=== PATIENT | male | born 1940 | race Caucasian/White ===

== ENCOUNTER 2017-06-12 05:42 | Day surgery (SDC) | payer MEDICARE, SELFPAY ==
--- NOTE | 2017-06-08 11:38 | EKG12_ITS ---
Test Reason : PRE-OP Blood Pressure : / mmHG Vent. Rate : 102 BPM Atrial Rate : 187 BPM P-R Int : 000 ms QRS Dur : 100 ms QT Int : 350 ms P-R-T Axes : 000 079 090 degrees QTc Int : 456 ms Atrial fibrillation with rapid ventricular response with premature ventricular or aberrantly conducte d complexes Abnormal ECG Confirmed by SWAPNIL TORRES ([id number]), book editor VIOLET GOODWIN ([id number]) on 06/12/2017 1:23:10 PM Referred By: Daquan Sanford Confirmed By:SWAPNIL TORRES
[2017-06-08 12:32] LABS: Hematocrit 45.6 % (40-54); Hemoglobin 14.8 g/dl (13.0-16.5); Mean Corp Hgb Conc 32.5 g/gl (32-36); Mean Corpuscular Hgb 30.1 pg (27.0-32.0); Mean Corpuscular Volume 92.7 fL (80-94); Mean Platelet Vol. 10.5 fl (6.2-12.0); Platelet Count 150 K/mm3 (150-450); RBC Distribution Width CV 15.6 % (11.6-14.6); RBC Distribution Width SD 52.9 fl (35.1-43.9); Red Blood Count 4.92 M/mm3 (4.6-6.2); White Blood Count 4.9 K/mm3 (4.4-11.0)
[2017-06-08 12:44] LABS: Scan Indicated on CBC? Y/N NO
[2017-06-08 13:00] LABS: Anion Gap 6 (5-15); BUN 43 mg/dL (7-18); BUN/Creat Ratio 15.4 RATIO (10-20); Chloride 96 mmol/L (98-107); EST Glomerular Filtration Rate 24 mL/min (>60); Est Glom Filt Rate - Afr Amer 29 mL/min (>60); Glucose 254 mg/dL (74-106); Potassium 4.5 mmol/L (3.5-5.1); Sodium Level 131 mmol/L (136-145)
[2017-06-08 13:11] LABS: Hemoglobin A1c 8.1 % (4.2-6.3)
--- NOTE | 2017-06-12 | LES_PTH ---
PATIENT: DOMINIC RODRIGUEZ LOC: [facility] [place][id number] AGE/SX: 76/M ROOM: RE06/12/[address]: Dr. Hugh Sanford MD : 1940 BED: DIS: 06/12/2017 SPEC #: [id number] RECD: 06/12/17 07:58 STATUS: HANNA DEMETRIS #: [id number] CARLOS: 06/12/17 00:[address]: Hugh Sanford DEPT: SURGICAL PATHOLOGY RECD BY: Itzel Graves ENTERED: 06/12/17 10:01 SP TYPE: Lesion OTHR DR: Dr. Timi Noel MD Tissues: A - Skin of external ear, NOS B - Skin of external ear, NOS C - Skin of external ear, NOS D - Skin of external ear, NOS E - Skin of external ear, NOS F - Skin of external ear, NOS Procedures: Frozen Section (charge) Frozen Section Add'l ([facility]) Surgery Specimen Level IV Frozen (no charge) HEADER OPERATION: Excision right ear lesion with reconstruction, frozen section PRE-OP DIAGNOSIS: Right ear lesion TISSUE SUBMITTED: A ? Right ear lesion ? stitch at 12 o?clock, for diagnosis and margins sent to lab for FS at 1256, B ? Deep margins sent to lab for FS at 0800, C ? 12-3 o?clock margin sent to lab for FS at 0840, D ? 3-6 o?clock margin sent to lab for FS at 0840, E ? 6-9 o?clock margin sent to lab for FS at 0840, F ? 9-12 o?clock margin sent to lab for FS at 0840 FROZEN SECTION DIAGNOSIS A. Right ear lesion, biopsy: Squamous cell carcinoma, 3, 9 and 12 o?clock margins and deep margins are positive for tumor. B. Right ear lesion, deep margin, biopsy: Negative for carcinoma. C. Right ear lesion, 12 to 3 o?clock margin, biopsy: Negative for carcinoma. D. Right ear lesion, 3 to 6 o?clock margin, biopsy: Negative for carcinoma. E. Right ear lesion, 6 to 9 o?clock margin, biopsy: Negative for carcinoma. F. Right ear lesion, 9 to 12 o?clock margin, biopsy: Negative for carcinoma. SJ:adam 06/12/17 MICROSCOPIC DIAGNOSIS A. 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 See comment. Deep margin also show the cartilage. B. Right ear lesion, deep margin, biopsy: Negative for carcinoma. C. Right ear lesion, 12 to 3 o?clock margin, biopsy: Negative for carcinoma. D. Right ear lesion, 3 to 6 o?clock margin, biopsy: Negative for carcinoma. Solar elastosis. E. Right ear lesion, 6 to 9 o?clock margin, biopsy: Negative for carcinoma. Solar elastosis. F. Right ear lesion, 9 to 12 o?clock margin, biopsy: Negative for carcinoma. SJ:rg 06/13/17 COMMENT A. 12 o?clock margin is positive for tumor only in the frozen section slide. The deep margin and 3 and 9 o?clock margins are positive for tumor. MICROSCOPIC DESCRIPTION Slides are reviewed. GROSS DESCRIPTION A - Received fresh for frozen section diagnosis labeled with the patient's name is a specimen designated right ear lesion, stitch at 12 o'clock. The specimen consists of a round piece of duggan-white skin with focal ulcerated area measuring 1.6 x 1.5 cm and 0.1 cm in thickness. The specimen is inked as follows: 12?o?clock ? black, 6 o?clock ? blue, 3 o?clock ? green, 9 o?clock ? yellow. The entire specimen is submitted for frozen section diagnosis in two cassettes. Cassette 2 contains the 3 and 9 o?clock (enfaced) margins. B - Received fresh for frozen section diagnosis labeled with the patient's name is a specimen designated deep margin.? The specimen consists of a piece of soft tissue measuring 0.2 x 0.1 x 0.1 cm. The entire specimen is submitted for frozen section diagnosis in one cassette. C - Received fresh for frozen section diagnosis labeled with the patient's name is a specimen designated 12-3 o?clock margin.? The specimen consists of a piece of duggan-white skin measuring 0.5?x?0.3 x 0.1 cm. The entire specimen is submitted for frozen section diagnosis in one cassette. D - Received fresh for frozen section diagnosis labeled with the patient's name is a specimen designated 3-6 o?clock margin.? The specimen consists of a piece of duggan-white skin measuring 0.2?x?0.2 x 0.1 cm. The entire specimen is submitted for frozen section diagnosis in one cassette. E - Received fresh for frozen section diagnosis labeled with the patient's name is a specimen designated 6-9 o?clock margin.? The specimen consists of a piece of duggan-white skin measuring 0.4?x?0.2 x 0.1 cm. The entire specimen is submitted for frozen section diagnosis in one cassette. F - Received fresh for frozen section diagnosis labeled with the patient's name is a specimen designated 9-12 o?clock margin.? The specimen consists of a piece of duggan-white skin measuring 0.8?x?0.1 x 0.1 cm. The entire specimen is submitted for frozen section diagnosis in one cassette. / SJ:rg 06/12/17 TC:0 CPT: 18463 x6, 99553 x6, [id number]
[2017-06-12 06:15] VITALS: BP 128/91; PULSE 81; RESP 16; TEMP 36.3; O2SAT 98; BMI 30.2
[2017-06-12 06:31] LABS: Anion Gap 9 (5-15); BUN 40 mg/dL (7-18); BUN/Creat Ratio 13.8 RATIO (10-20); Calcium,Total 8.1 mg/dL (8.5-10.1); Chloride 98 mmol/L (98-107); Creatinine, Serum 2.89 mg/dL (0.70-1.30); EST Glomerular Filtration Rate 23 mL/min (>60); Est Glom Filt Rate - Afr Amer 28 mL/min (>60); Glucose 204 mg/dL (74-106); Potassium 3.9 mmol/L (3.5-5.1); Sodium Level 135 mmol/L (136-145)
[2017-06-12 06:36] LABS: Bedside Glucose 188 mg/dL (70-110)
[2017-06-12 06:38] LABS: International Normalized Ratio 1.8; Prothrombin Time (Protime)PT. 20.4 SECONDS (11.7-14.9)
[2017-06-12] MEDS: Clindamycin 900 MG/50 ML BAG 75 MG IV (07:26)
--- NOTE | 2017-06-12 07:28 | PCM.DC ---
You will use the following diet at home:: No restrictions Discharge Activity: No Restrictions Call your doctor if your incision/area has: Increased Pain/ Swelling Additional Dressing/Incision Instructions:: keep right ear dry until bolster taken off in clinic in 1 week. neck site can be washed with soap and water starting morning. place ointment on neck incision twice daily Allergies/Adverse Reactions: Allergies No Known Allergies Allergy (Verified 06/05/17 13:10) Medications to take at Discharge Amitriptyline HCl [Elavil] 25 mg PO QHS 06/05/17 Cholecalciferol (Vitamin D3) [Vitamin D3] 4,000 unit PO DAILY 06/05/17 Febuxostat [Uloric] 40 mg PO DAILY 06/05/17 Furosemide [Lasix] 40 mg PO DAILY 06/05/17 Gabapentin [Neurontin] 300 mg PO BID 06/05/17 Gabapentin [Neurontin] 600 mg PO QHS 06/05/17 Insulin Detemir [Levemir ([facility])] 32 units SC QHS 06/05/17 Lenalidomide [Revlimid] 2.5 mg PO DAILY 06/05/17 Metoprolol Succinate [Toprol Xl] 25 mg PO DAILY 06/05/17 Pravastatin [Pravachol] 20 mg PO QHS 06/05/17 Warfarin [Coumadin ([facility])] 0.5 mg PO SUWE 06/05/17 Warfarin [Coumadin ([facility])] 1 mg PO MOTUTHFRSA 06/05/17 Acetaminophen/Codeine #3 [Tylenol#3] 1 tab PO Q6H PRN PRN 5 Days #15 tab 06/12/17 Cephalexin [Keflex] 500 mg PO BID #6 cap 06/12/17 The following prescriptions were given: Acetaminophen/Codeine #3 [Tylenol#3] 1 tab PO Q6H PRN PRN 5 Days #15 tab PRN Reason: Pain Cephalexin [Keflex] 500 mg PO BID #6 cap Primary Care Physician: Timi Noel [Primary Care Provider] - Please Follow Up With: Daquan Sanford MD When: 1 week
--- NOTE | 2017-06-12 07:30 | PCM.OPRPT ---
Problem List (1) Ear lesion Status: Chronic Report of Operation Date of Procedure: 06/12/17 Pre-Operative Diagnosis: right ear lesion Post-Operative Diagnosis: 1. 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 2. right ear defect 2.5 x 2.5 cm Surgery/Procedure Performed:: 1. excision right squamous cell carcinoma, right auricle. 2. full thickness skin graft, 2.5cm x 1.5 cm, right auricle Type of Anesthesia:: General Specimen's removed: right ear lesion Drains: none Description of Procedure: on the day of the procedure, after appropriate informed consent was obtained, the patient was brought to the operating room and placed in supine position on the operating table. he was placed under general endotracheal anesthesia by the anesthesiologist. the endotracheal tube was secured, the eyes were taped. the table was rotated 90 degrees. the right ear and right neck were injected with lidocaine/epinephrine; this area was prepped and draped in sterile fashion. the maria victoria cavum lesion, 1.5 cm, extended from the posterior tragus to the incisura and slightly toward the external auditory canal but not entering it. the lesion was excised with 5mm circumferential margins. the specimen was confirmed as squamous cell carcinoma; the superior margins returned positive. additional 3mm circumferential margins were taken and the perichondrium was completely removed. margins outside the new margins were sent as quadrants and all returned negative. the final defect was 2.5 x 2.5 cm in diameter. an elliptical incision was made in a right lower neck crease and a 2.5cm x 2cm full thickness skin graft was taken. the surrounding tissue was undermined with a anatoliy scizzor circumferentially 1cm. the incision was closed using a layered closure using 4-0 vicryl and 5-0 fast gut. the graft was pie-crusted. after hemostasis was achieved, the graft was laid into the defect. it was sutured into place using 4-0 chromic both to the lateral defect as well as through and through the ear. the medial portion of the defect - the lateral EAC was left to granulate. a bolster was placed on the graft for compression and sutured through and through with 2-0 prolene. the patient was awoken from anesthesia and transferred to the PACU in stable condition. - Complications none - Admit VTE Documentation VTE Present on Admission: No VTE Mechan Device Prophylaxis: SCD's VTE Pharm Prophylaxis ordered?: No Reason prophylaxis not ordered:: Treatment Not Indicated
[2017-06-12] MEDS: Mupirocin Ointment 22gm Tube 1 APPLIC (09:17)
[2017-06-12 09:41] VITALS: BP 128/91; BP 145/108; PULSE 91; RESP 18; TEMP 36.6; O2SAT 94
[2017-06-12 09:45] VITALS: BP 128/91; BP 161/135; PULSE 86; RESP 16
[2017-06-12 10:00] VITALS: BP 100/87; BP 128/91; PULSE 81; RESP 16; O2SAT 94
[2017-06-12 10:07] VITALS: BP 128/91; BP 141/98; PULSE 87; RESP 16; TEMP 36.7; O2SAT 96
[2017-06-12 10:11] LABS: Bedside Glucose 156 mg/dL (70-110)
[2017-06-12 11:22] VITALS: BP 128/91
== END 2017-06-12 11:24 | disposition home or self-care (01) ==
LOC: SDC 05:43 → AC 05:43
PROVIDERS: Family Provider Family Medicine; PCP Family Medicine; Visit Provider Otolaryngology
PROC: (CPT 11642; principal; 2017-06-12 07:20)
DX: C44.222 Squamous cell carcinoma of skin of right ear and external auricular canal (principal); E11.9 Type 2 diabetes mellitus without complications; C90.00 Multiple myeloma not having achieved remission; N28.89 Other specified disorders of kidney and ureter; Z79.4 Long term (current) use of insulin; Z79.01 Long term (current) use of anticoagulants; Z79.899 Other long term (current) drug therapy; I48.91 Unspecified atrial fibrillation; I50.9 Heart failure, unspecified; I11.0 Hypertensive heart disease with heart failure; Z87.891 Personal history of nicotine dependence; Z86.73 Personal history of transient ischemic attack (TIA), and cerebral infarction without residual deficits
CPT/HCPCS: 11642; 15260; 36415; 80048; 82962; 83036; 85027; 85610; 88305; 88331; 88332; 93005; J7120; J2405

== ENCOUNTER → 2017-07-16 16:38 | Outpatient (CLI) | payer MEDICARE, SELFPAY | PROVIDERS: Family Provider Family Medicine; PCP Family Medicine; Visit Provider Otolaryngology | DX: H92.10 Otorrhea, unspecified ear (principal) | CPT/HCPCS: 87070; 87075; 87077; 87186; 87205 ==

== ENCOUNTER → 2017-12-25 13:22 | Outpatient (CLI) | payer MEDICARE, SELFPAY ==
--- NOTE | 2017-12-25 13:53 | RAD_ITS ---
STUDY: X-RAY CHEST REASON FOR EXAM: Male, 77 years old. Congestive heart failure TECHNIQUE: PA and lateral chest COMPARISON: None. FINDINGS: Right pectoral AICD device with 2 wire leads. Small to moderate layering right effusion with right lung base atelectasis. Minimal left effusion. Lungs otherwise clear. Normal cardiomediastinal silhouette, shashank and pleural margins. No acute osseous or upper abdominal process. RAD/Chest PA and Lateral IMPRESSION: Small to moderate right greater than left pleural effusions with mild right lung base atelectasis. No convincing features otherwise of interstitial edema. Effusion could be associated with mild cardiogenic pulmonary edema in the setting of chronic cardiac disease but other etiologies are not excluded. Electronically Signed: Jorge Schmitz, at 17:59 EDT Tel , Service support ,
[2017-12-25 14:35] LABS: Hematocrit 43.9 % (40-54); Hemoglobin 14.1 g/dl (13.0-16.5); Mean Corp Hgb Conc 32.1 g/gl (32-36); Mean Corpuscular Hgb 29.3 pg (27.0-32.0); Mean Corpuscular Volume 91.1 fL (80-94); Mean Platelet Vol. 11.1 fl (6.2-12.0); Platelet Count 104 K/mm3 (150-450); RBC Distribution Width CV 18.7 % (11.6-14.6); RBC Distribution Width SD 61.3 fl (35.1-43.9); Red Blood Count 4.82 M/mm3 (4.6-6.2); White Blood Count 3.9 K/mm3 (4.4-11.0)
[2017-12-25 14:38] LABS: Scan Indicated on CBC? Y/N NO
[2017-12-25 14:43] LABS: International Normalized Ratio 1.7; Prothrombin Time (Protime)PT. 20.1 SECONDS (11.7-14.9)
[2017-12-25 14:44] LABS: Partial Thromboplast Time 32.5 Seconds (24.1-36.2)
[2017-12-25 15:03] LABS: Anion Gap 12 (5-15); BUN 36 mg/dL (7-18); BUN/Creat Ratio 15.2 RATIO (10-20); Calcium,Total 8.5 mg/dL (8.5-10.1); Chloride 97 mmol/L (98-107); Creatinine, Serum 2.37 mg/dL (0.70-1.30); EST Glomerular Filtration Rate 29 mL/min (>60); Est Glom Filt Rate - Afr Amer 35 mL/min (>60); Glucose 82 mg/dL (74-106); Sodium Level 132 mmol/L (136-145)
== END ==
PROVIDERS: Family Provider Family Medicine; PCP Family Medicine; Visit Provider Internal Medicine Cardiovascular Disease
DX: I49.3 Ventricular premature depolarization (principal); I48.0 Paroxysmal atrial fibrillation; I42.8 Other cardiomyopathies; I50.22 Chronic systolic (congestive) heart failure; R06.02 Shortness of breath
CPT/HCPCS: 36415; 71046; 80048; 85027; 85610; 85730

== ENCOUNTER → 2017-12-27 11:01 | Outpatient (CLI) | payer MEDICARE, SELFPAY ==
--- NOTE | 2017-12-27 11:02 | ECHOD_ITS ---
Reason For Study: CHF Procedure This was a 2D Doppler, Color Flow transthoracic echocardiogram. Exam performed in department. Left Ventricle Apical false tendon noted. Moderately dilated left ventricle. The estimated ejection fraction is 15 %. Septal motion consistent with IVCD. There is severe global hypokinesis of the left ventricle. Right Ventricle Moderately dilated right ventricle. ICD or pacer leads identified within the right ventricle. Moderate global right ventricular systolic dysfunction. Atria The left atrium is severely enlarged. The right atrium is severely enlarged. Normal atrial septum. Positive bubble study. Mitral Valve Mild diffuse mitral valve thickening. Mild mitral annular calcification extending into the posterior leaflet. Mild (1+) mitral valve insufficiency. Tricuspid Valve Normal tricuspid valve. Mild (1+) tricuspid valve insufficiency. Right ventricular systolic pressure estimated to be 49 mmHg. Moderate pulmonary hypertension. Aortic Valve Trisinus/trileaflet aortic valve. Moderate diffuse aortic valve thickening. Moderate diffuse aortic valve calcification. Severe restriction of the aortic valve. Moderate aortic stenosis. Calculated aortic valve area (continuity equation) is 1.0 cm2. Trivial aortic valve insufficiency. Pulmonic Valve Normal pulmonic valve. Great Vessels Normal aortic root. Mild atherosclerosis of the aortic arch. The inferior vena cava is dilated. Inferior vena cava collapse with sniff. Pericardium/Pleural No pericardial effusion. Medication 22 gauge I.V. with prn adaptor inserted into right arm. Performed a rapid injection of agitated mix of 9 cc saline and 1cc air to assess for atrial septal defect. MMode/2D Measurements & Calculations LVIDd: 5.5 cm IVSd: 0.94 cm LVOT diam: 2.0 cm LVIDs: 5.1 cm LVPWd: 0.90 cm LVOT area: 3.2 cm2 RVDd: 3.9 cm FS: 6.1 % Ao root diam: 3.4 cm LAV(MOD-bp): 106.6 ml LVAd ap4: 39.4 cm2 LA dimension: 4.7 cm LAV(MOD-bp) Indexed: 50.0 ml/m2 EDV(MOD-sp4): 146.9 ml LAV(MOD-sp2): 92.0 ml EDV(sp4-el): 150.3 ml LAV(MOD-sp4): 113.3 ml LVAs ap4: 35.4 cm2 ESV(MOD-sp4): 120.8 ml ESV(sp4-el): 124.2 ml EF(MOD-sp4): 17.8 % EF(sp4-el): 17.4 % SV(MOD-sp4): 26.2 ml SV(sp4-el): 26.1 ml LA A4 area: 31.2 cm2 RA A4 area: 36.3 cm2 Doppler Measurements & Calculations MV E max raeann: 94.7 cm/sec Ao V2 max: 175.3 cm/sec LV V1 max: 56.0 cm/sec Ao max P.6 mmHg LV V1 max P.3 mmHg Ao V2 mean: 135.7 cm/sec LV V1 mean P.73 mmHg Ao mean P.2 mmHg LV V1 mean: 40.1 cm/sec Ao V2 VTI: 28.8 cm LV V1 VTI: 10.0 cm MARIA INES(I,D): 1.1 cm2 MARIA INES(V,D): 1.0 cm2 SV(LVOT): 32.3 ml PA V2 max: 74.5 cm/sec TR max raeann: 265.8 cm/sec TR max P.5 mmHg Interpretation Summary Moderately dilated left ventricle. The estimated ejection fraction is 15 %. There is severe global hypokinesis of the left ventricle. Moderately dilated right ventricle. The left atrium is severely enlarged. The right atrium is severely enlarged. Positive bubble study. Mild (1+) tricuspid valve insufficiency. Right ventricular systolic pressure estimated to be 49 mmHg. Moderate pulmonary hypertension. Severe restriction of the aortic valve. Moderate to severe aortic stenosis. Pt appears to be in atrial fibrillation. Compared to echo report dated 06/11/2012, LV function has gone from 55% to 15 %, RVSP has decreased from 63 to 49 mm Hg, and aortic valve appears to be moderate to severely restricted. Ordering Physician: Antione Billy Referring Physician: REGINA BASHIR Performed By: Nafisa Ellis RDCS
== END ==
PROVIDERS: Family Provider Family Medicine; PCP Family Medicine; Visit Provider Internal Medicine Cardiovascular Disease
DX: I49.3 Ventricular premature depolarization (principal)
CPT/HCPCS: 93306; A4216

== ENCOUNTER → 2017-12-31 15:54 | Outpatient (CLI) | payer MEDICARE, SELFPAY ==
[2017-12-27 08:57] VITALS: BMI 31.2
[2017-12-28 07:21] LABS: Prothrombin Time Fingerstick 25.2 SEC (11.9-14.4)
== END ==
PROVIDERS: Family Provider Family Medicine; PCP Family Medicine; Visit Provider Internal Medicine Cardiovascular Disease
DX: Z01.812 Encounter for preprocedural laboratory examination (principal)
CPT/HCPCS: 36416; 85610

== ENCOUNTER 2018-01-01 11:12 | Inpatient (IN) | payer MEDICARE, SELFPAY ==
[2018-01-01] VITALS (11 sets, daily range): BP systolic 97–143; BP diastolic 69–98; PULSE 76–104; RESP 16–22; TEMP 36.4–36.9; O2SAT 92–98; BMI 31.5; BMI 30.6
--- NOTE | 2018-01-01 11:27 | CT_ITS ---
STUDY: CT BRAIN WITHOUT CONTRAST REASON FOR EXAM: Male, 77 years old. History of trauma. The patient is on Coumadin. RADIATION DOSAGE (If Supplied By Facility): CTDIvol = ( 44.99 ) mGy, DLP = ( 846.73 ) mGycm TECHNIQUE: Transaxial CT imaging of the brain was performed without administration of intravenous contrast material. Individualized dose optimization techniques were used for this CT. COMPARISON: None. FINDINGS: Normal soft tissue structures. Normal calvarium. There is moderate cerebral atrophy with widening of the extra-axial spaces and ventricular dilatation. There are areas of decreased attenuation within the white matter tracts of the supratentorial brain, consistent with microvascular disease changes. Focal encephalomalacia in the posterior aspect of the left temporal lobe most likely secondary to prior ischemic changes. Normal basal ganglia and thalami. Normal brainstem. Normal cerebellum. There is no intracranial hemorrhage. There are no findings of an acute ischemic infarction. Atherosclerotic calcification of the vertebral arteries and cavernous portions of the internal carotid arteries bilaterally. Opacification of the right maxillary sinus as well as the left sphenoid sinus. CT/Brain/Head without Contrast IMPRESSION: Chronic involutional changes of the brain. Opacification of the right maxillary sinus and left sphenoid sinus. Electronically Signed: Ciaran Pollard MD at 12:18 EDT Tel [phone], Service support ,
--- NOTE | 2018-01-01 11:27 | RAD_ITS ---
STUDY: X-RAY CHEST REASON FOR EXAM: Male, 77 years old. Syncopal episode TECHNIQUE: Single AP portable view of the chest. COMPARISON: 12/25/2017 FINDINGS: Lungs are hypoinflated. Diffuse interstitial edema. Stable right chest wall pacing device. Stable cardiomegaly. There is mild cardiac enlargement. Normal mediastinum and shashank. Normal visualized pulmonary arteries. Normal visualized aortic arch and descending thoracic aorta. Normal visualized thoracic spine. Normal visualized ribs, clavicles, and shoulders. There is no demonstrated abnormality of the visualized soft tissue structures of the upper abdomen. RAD/Chest 1 View (Portable) IMPRESSION: Findings suggestive of CHF Electronically Signed: Ludwig Oneil DO at 11:57 EDT Tel , Service support ,
--- NOTE | 2018-01-01 11:27 | EKG12_ITS ---
Test Reason : SYNCOPE Blood Pressure : / mmHG Vent. Rate : 098 BPM Atrial Rate : 214 BPM P-R Int : 000 ms QRS Dur : 102 ms QT Int : 380 ms P-R-T Axes : 000 085 164 degrees QTc Int : 485 ms Atrial fibrillation Low voltage QRS (LIMB LEADS) Poor R wave progression T wave abnormality: consider lateral ischemia Cannot rule out Inferior infarct , age undetermined Abnormal ECG Confirmed by NATA SCHMIDT, DAMIÁN ([id number]), photographic editor VIOLET GOODWIN ([id number]) on 01/02/2018 2:09:55 PM Referred By: SHIRA Confirmed By:DAMIÁN PEACE MD
--- NOTE | 2018-01-01 11:28 | CT_ITS ---
STUDY: CT CERVICAL SPINE WITHOUT CONTRAST REASON FOR EXAM: Male, 77 years old. History of trauma. The patient is on Coumadin. RADIATION DOSAGE (If Supplied By Facility): CTDIvol = ( 27.28 ) mGy, DLP = ( 717.21 ) mGycm TECHNIQUE: High resolution transaxial imaging was performed without contrast material. Sagittal and coronal images were reconstructed. Individualized dose optimization techniques were used for this CT. COMPARISON: None FINDINGS: Normal craniovertebral junction. There are degenerative changes of the anterior atlantoaxial articulation. Normal odontoid process. Normal cervical lordosis. Normal vertebral bodies and posterior osseous elements. Opacification of the left sphenoid sinus. C2-3: Mild degree of disc space narrowing. Facet joint osteoarthritis worse on the right side. Uncovertebral arthrosis. Mild degree of the right neural foraminal stenosis. C3-4: Facet joint osteoarthritis and hypertrophy worse on the left side. Uncovertebral arthrosis. Mild bilateral neural foraminal stenosis worse on the left side. C4-5: Anterior spondylosis. Facet joint osteoarthritis and hypertrophy worse on the right side. Uncovertebral arthrosis. Mild degree of left neural foraminal stenosis. C5-6: Marked degree of disc space narrowing and disc degeneration. Left posterior paracentral spondylosis causing moderate to marked degree of compression of the left side of the spinal cord. Bilateral neural foraminal stenosis worse on the left side. C6-7: Marked degree of disc space narrowing and spondylosis with uncovertebral arthrosis. Mild degree of bilateral neural foraminal stenosis. CT/Spine Cervical without Contras IMPRESSION: Multilevel degenerative changes, as described above. Electronically Signed: Ciaran Pollard MD at 12:24 EDT Tel [phone], Service support ,
--- NOTE | 2018-01-01 11:44 | ED.DCSUM_ITS ---
- ER Visit Summary Date of Service: 01/01/18 Chief Complaint: Change in mental status status post syncopal episode History of Present Illness: The patient is a 77 M who apparently was sitting in a chair in his room and fell out of the chair at 0400. Uncertain if he had a syncopal episode or not. He has not been normal since. He is on Coumadin for chronic A. fib. He acknowledged denies head pain. His speech is garbled. History is limited to what is able to tell me. Physical Examination: Blood pressure 112/90, heart rate 101, respiratory rate 22. He is not hypoxic nor is he febrile. He has multiple recent as well as old bruises to his head. There is no clinical findings basal skull fracture. Trach is midline. He was placed in a c-collar's since he is not alert oriented and cannot be cleared per Nexus criteria. Heart is irregularly regular. Lungs revealed diminished breath sounds bilaterally. Abdomen is soft nontender. There is pitting edema both lower extremities. He moves all extremities. DTRs symmetric with no clonus or Babinski sign. Test Results: CT of the head reveals no evidence of intracranial pathology or fracture. There is evidence of right maxillary sinusitis and left sphenoid sinusitis. CT of the neck reveals degenerative changes. Portable chest x-ray reveals cardiomegaly and CHF. White count is 3.9 thousand with no shift. BUN and creatinine are 46 and 2.81. Creatinine on December 25 was 2.37. INR subtherapeutic at 1.5. Troponins elevated at 0.376. Emergency Department Course and Treatment: With history of head trauma on Coumadin and complaint of headache emergent CAT scan head was obtained to rule out intracranial bleed. Since C-spine cannot be ruled out by Nexus criteria CT of the neck was obtained. EKG, appropriate blood work was obtained to evaluate for metabolic versus infectious versus cardiac etiology. Treatment Plan: Change in mental status this may represent a stroke this could be secondary to infectious process with the evidence of sphenoid and maxillary sinusitis. Will treat with Rocephin. He will need further workup. Since he is a fall risk with 3 falls in the last 1-2 weeks consider termination of anticoagulation therapy. Disposition: Admit PCU Impression: 1. Fall unknown etiology 2. Exacerbation of CHF 3. Chronic atrial fibrillation 4. Elevated troponin on certain etiology 5. Right maxillary and left sphenoid sinusitis 6. Acute on chronic end-stage renal disease 7. Neutropenia 8. Change in mental status 9. Closed head injury This note was generated with [employer] dictation software. It may contain incorrect words, spelling, and punctuation that were not noted in review of the chart prior to signing ED Disposition - Plan for ED Patient: Chief Complaint: Syncope Referrals: Timi Noel [Primary Care Provider] -
[2018-01-01 11:47] LABS: Absolute Lymphocyte Count 0.66 X10^3/ul (0.83-4.51); Absolute Neutrophil Count 2.6 X10^3/uL (2.0-7.7); Basophil# 0.05 X10^3/uL; Basophil% 1.3 % (0-1); Eosinophil# 0.15 X10^3/uL; Eosinophils% 3.8 % (0-5); Hematocrit 42.1 % (40-54); Hemoglobin 13.4 g/dl (13.0-16.5); Lymphocyte # 0.66 X10^3/ul (4.0); Lymphocyte % 16.8 % (19-41); Mean Corp Hgb Conc 31.8 g/gl (32-36); Mean Corpuscular Hgb 28.3 pg (27.0-32.0); Mean Corpuscular Volume 88.8 fL (80-94); Mean Platelet Vol. 10.2 fl (6.2-12.0); Monocyte# 0.49 X10^3/uL; Monocyte% 12.5 % (0-10); Neutrophil # 2.56 X10^3/uL (2.7-7.7); Neutrophil % 65.3 % (47-70); POSITIVE COUNT NO; POSITIVE DIFFERENTIAL NO; POSITIVE MORPHOLOGY NO; Platelet Count 105 K/mm3 (150-450); RBC Distribution Width CV 18.4 % (11.6-14.6); Red Blood Count 4.74 M/mm3 (4.6-6.2); White Blood Count 3.9 K/mm3 (4.4-11.0)
--- NOTE | 2018-01-01 11:47 | NURSING ---
BLUE TOP SHORT AND NEEDS REDRAWN
[2018-01-01 11:54] LABS: Anion Gap 11 (5-15); BUN 46 mg/dL (7-18); BUN/Creat Ratio 16.4 RATIO (10-20); Calcium,Total 8.8 mg/dL (8.5-10.1); Chloride 94 mmol/L (98-107); Creatinine, Serum 2.81 mg/dL (0.70-1.30); EST Glomerular Filtration Rate 23 mL/min (>60); Est Glom Filt Rate - Afr Amer 28 mL/min (>60); Estimated Creatinine Clearance 23.09 ml/min; Glucose 80 mg/dL (74-106); Potassium 4.5 mmol/L (3.5-5.1); Sodium Level 134 mmol/L (136-145)
[2018-01-01 12:24] LABS: International Normalized Ratio 1.5; Prothrombin Time (Protime)PT. 18.2 SECONDS (11.7-14.9)
[2018-01-01] MEDS: Diphth,Pertuss(Acell),Tet Vac 0.5 ML Vial IM (12:52)
--- NOTE | 2018-01-01 13:17 | CASEMGMT ---
Social Work Note Face to face with the pt and spouse to complete initial assessment. Introduced self and role at [facility]. The pt is painful and completes assessment with SW. According to Marcy, , the pt and she live in a one-story home with 4 MANUEL and 2 handrails. The pt typically does not have access issues, and does not use DME. Marcy states that he has been more weak the last two weeks. Per Marcy the pt is independent with ADL's. Confirms that the pt's PCP is Dr. Noel, and specialists are Dr. Sears and Dr. Billy. Preferred pharmacy is [facility] in [place]. Pt does have advanced directives. None on file. Request that pt's bring them in. Pt does not have a hx of SNF or HHC services, and is unsure if they will need either at discharge. Inform that PT/OT will likely be ordered and an RN CM will assist with navigation of discharge needs/services. Michelle Ballard, SA[employer]AGE S[employer]ER, [employer]UM PLATER
[2018-01-01] MEDS: Ceftriaxone 1 GM/50 ML BAG IV (13:24)
[2018-01-01] MEDS: Furosemide 40 MG/4 ML Vial IV ×2 (13:24→17:24)
--- NOTE | 2018-01-01 13:29 | NURSING ---
122 ALTERED MENTAL STATUS, ACUTE CHF PAINTSIL
[2018-01-01 14:44] LABS: Thyroid Stim Hormone (TSH) 2.81 uIU/mL (0.358-3.74)
[2018-01-01 14:54] LABS: BNP,B-Type NATRIURETIC PEPTIDE 2847.1 pg/mL (0-100)
--- NOTE | 2018-01-01 15:59 | PCM.HP.STD ---
Problem List (1) Acute on chronic systolic CHF (congestive heart failure) Status: Acute (2) Type 2 diabetes mellitus Status: Chronic Qualifiers: Diabetes mellitus mcfp insulin use: with mcfp use Diabetes mellitus complication status: with unspecified complications Qualified Code(s): E11.8 - Type 2 diabetes mellitus with unspecified complications; Z79.4 - snf (current) use of insulin (3) Multiple myeloma Status: Chronic Qualifiers: Multiple myeloma remission status: unspecified Qualified Code(s): C90.00 - Multiple myeloma not having achieved remission (4) Hyperlipidemia Status: Chronic Qualifiers: Hyperlipidemia type: unspecified Qualified Code(s): E78.5 - Hyperlipidemia, unspecified (5) HTN (hypertension) Status: Chronic Qualifiers: Hypertension type: essential hypertension Qualified Code(s): I10 - Essential (primary) hypertension History of Present Illness Date of Admission: 01/01/18 Chief Complaint: Shortness of breath, fall The patient is a 77 year old M with PMHx of multiple myeloma, on oral chemotherapy, hypertension, chronic atrial fibrillation, on coumadin, cognitive impairment who has recently established with Dr. Billy and had an ECHO done which showed EF 15%, severe global hypokinesis. He has severe aortic stenosis also and was due to get a OSWALDO, left and right heart cath on . History is per as patient appears confused. He has been sleeping in a recliner for weeks now and sleeps with his head frequently almost touching his knees. His heard a loud thump on the morning of the admission, came to find him lying on the floor. He did not look confused, it was unclear if he passed out. He denied chest pain, dizziness or palpitations. He had some bruises to his head. He was seen in the ED and CT brain was negative for any intracranial abnormalities. His blood work and CHF was however suggestive of acute CHF. Past Medical History Past Medical History (Chronic Problems): Chronic Problems (Last Updated 12/27/17 @ 13:37 by Ebony Cross) AICD (automatic cardioverter/defibrillator) present (Chronic) Nonrheumatic aortic (valve) stenosis (Chronic) per echo 12/27/17 Premature ventricular contractions (Chronic) First degree AV block (Chronic) Nonischemic cardiomyopathy (Chronic) EF 20-25% per echo Apr 2017 History of cardioversion (Chronic 08/15/17) OSWALDO, DCCV and ICD implant for nonischemic CMP @ [facility] per Dr. Gifford History of nephrectomy (Chronic) Mentioned in EP procedure done @ [facility] 2018: verify with pt at appt. Cardiac defibrillator in situ (Chronic) with pacemaker, prophylactic for EF of 20-25%/sudden cardiac prevention: Dual Chamber, Medtronic Evera MRI XT DR model DDM B1D4, serial number [id number] per Dr. 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 Sears for oncology Chronic kidney disease, stage 4 (severe) (Chronic) Chronic systolic CHF (congestive heart failure), NYHA class 3 (Chronic) Ear lesion (Chronic) Type 2 diabetes mellitus (Chronic) Multiple myeloma (Chronic) History of atrial fibrillation (Chronic) Hyperlipidemia (Chronic) HTN (hypertension) (Chronic) Medical History: Medical History (Last Updated 12/27/17 @ 13:37 by Ebony Cross) Nonrheumatic aortic (valve) stenosis (Chronic) I35.0 per echo 12/27/17 Pleural effusion, right (Acute) J90 Premature ventricular contractions (Chronic) I49.3 First degree AV block (Chronic) I44.0 Nonischemic cardiomyopathy (Chronic) I42.8 EF 20-25% per echo Apr 2017 Cardiac defibrillator in situ (Chronic) Z95.810 with pacemaker, prophylactic for EF of 20-25%/sudden cardiac prevention: Dual Chamber, Medtronic Evera MRI XT DR model DDM B1D4, serial number [id number] per Dr. 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 Sears for oncology Chronic kidney disease, stage 4 (severe) (Chronic) N18.4 Inguinal hernia bilateral, non-recurrent (Acute) K40.20 Chronic systolic CHF (congestive heart failure), NYHA class 3 (Chronic) I50.22 Shortness of breath (Acute) R06.02 Gout (Acute) M10.9 Arthritis (Acute) M19.90 Fatigue (Acute) R53.83 Ear lesion (Chronic) H93.90 Type 2 diabetes mellitus (Chronic) E11.9 Multiple myeloma (Chronic) C90.00 History of atrial fibrillation (Chronic) Z86.79 Hyperlipidemia (Chronic) E78.5 HTN (hypertension) (Chronic) I10 Allergies No Known Allergies Allergy (Verified 01/01/18 11:30) Home Medications: Ambulatory Orders Medication Instructions Recorded Amitriptyline HCl [Elavil] 25 mg PO QHS 06/05/17 Cholecalciferol (Vitamin D3) 4,000 unit PO DAILY 06/05/17 [Vitamin D3] Gabapentin [Neurontin] 300 mg PO BID 06/05/17 Gabapentin [Neurontin] 600 mg PO QHS 06/05/17 Insulin Detemir [Levemir (BKC)] 30 units SC QHS 06/05/17 Lenalidomide [Revlimid] 2.5 mg PO DAILY 06/05/17 Metoprolol Succinate [Toprol Xl] 25 mg PO DAILY 06/05/17 Pravastatin [Pravachol] 20 mg PO QHS 06/05/17 Warfarin [Coumadin (PBKC)] 0.5 mg PO SUWE 06/05/17 Warfarin [Coumadin (PBKC)] 1 mg PO MOTUTHFRSA 06/05/17 furosemide 40 mg tablet 20 mg PO DAILY tab 12/05/17 aspirin 81 mg tablet,delayed 81 mg PO DAILY 12/25/17 release Clopidogrel Bisulfate [Clopidogrel] 75 mg PO DAILY 01/01/18 Enoxaparin Sodium [Lovenox] 80 mg SC Q12H 01/01/18 Surgical History: Surgical History (Last Reviewed 12/25/17 @ 11:42 by Ebony Cross) History of cardioversion (Chronic) Onset Date: 08/15/17 Z98.890 OSWALDO, DCCV and ICD implant for nonischemic CMP @ [facility] per Dr. Gifford History of nephrectomy (Chronic) Z90.5 Mentioned in EP procedure done @ [facility] 2018: verify with pt at appt. History of renal stent (Acute) Z98.890 Right side Hx of hemorrhoidectomy (Acute) Z98.890 Hx of basal cell carcinoma excision (Acute) Z98.890, Z85.828 inside right ear- 05/2017 Surgical History: - - s/p nephrectomy, hemorrhoidectomy, h/o renal stent, h/o cardioversion Psychiatric History: No pertinent psych hx Lives: Spouse/ Significant Other Smoking Status: Former smoker Tobacco Use: Cigarettes Alcohol: None Drugs: None - *Family History Maternal Family History: Family History (Last Reviewed 12/25/17 @ 11:42 by Ebony Cross) Sister Heart disease Diabetes Hypertension Mother CAD (coronary artery disease) Myocardial infarction Brother CAD (coronary artery disease) Myocardial infarction Father Aneurysm History Items: Heart Disease Sibling Family History: Family History (Last Reviewed 12/25/17 @ 11:42 by Ebony Cross) Sister Heart disease Diabetes Hypertension Mother CAD (coronary artery disease) Myocardial infarction Brother CAD (coronary artery disease) Myocardial infarction Father Aneurysm History Items: Heart Disease Paternal Family History: Family History (Last Reviewed 12/25/17 @ 11:42 by Ebony Cross) Sister Heart disease Diabetes Hypertension Mother CAD (coronary artery disease) Myocardial infarction Brother CAD (coronary artery disease) Myocardial infarction Father Aneurysm History Items: - - Aortic dissection Review of Systems Constitutional: Denies: Anorexia, Chills, Fever, Malaise, Weakness, Weight Change Eyes: Denies: Blurred vision, Cataracts, Conjunctivae Inflammation, Double vision, Pain, Redness, Vision Change HEENT: Denies: Difficulty Hearing, Difficulty Swallowing, Head Aches, Hearing Changes, Sinus Congestion, Sinus Drainage, Sore Throat Cardiovascular: Reports: Orthopnea, Paroxysmal Noc. Dyspnea, Syncope. Denies: Chest Pain, Claudication, Palpitations Respiratory: Reports: Shortness of breath at rest, Shortness of breath upon exertion. Denies: Cough, Sputum production Gastrointestinal: Denies: Abdominal Pain, Nausea, Vomiting Genitourinary: Denies: Dysuria Musculoskeletal: Denies: Joint Pain, Joint stiffness, Joint swelling, Joint Tenderness Skin: Denies: Rash, Wounds Neurological: Denies: Numbness, Tingling, Focal weakness Psychiatric: Denies: Anxiety, Depression, Homicidal Ideations, Suicidal Ideations Hematologic/ Lymphatic: Denies: Easy Bruising, Easy Bleeding VTE Information - Inpt Only VTE Present on Admission: No VTE Pharm Prophylaxis ordered?: Yes Patient Problems: Active and Suspected Problems (Last Updated 12/27/17 @ 13:37 by Ebony Cross) Acute on chronic systolic CHF (congestive heart failure) (Acute) Syncope (Acute) - Physical Exam General: Alert, Cooperative, Confused, - - in mild respiratory distress HEENT: Atraumatic, PERRLA, EOMI, Normocephalic, - - ecchymosis on forehead Oral: Moist Mucosa Neck: Supple, No JVD, Negative Carotid Bruits Lungs: Normal air movement, Diminished - at the lung bases Cardiovascular: Regular rate, Regular Rhythm, Normal S1, Normal S2, No murmurs Abdomen: Bowel Sounds Present, Soft, Non Tender, Non-Distended, No Hepato-splenomegaly Extremities: Edema - bilateral leg edema, with chronic venous stasis changes, pitting, +2, non-edema. Skin: No rashes, No breakdown Musculoskeletal: No Tenderness to Palpation of Joints or Extremities Neurological: Cranial nerves II-XII grossly intact, Neuro grossly intact Psych/Mental Status: Normal Affect, Appropriate Vital Signs Temp Pulse Resp BP Pulse Ox 98.4 F 104 H 18 143/94 H 92 01/01/18 14:05 01/01/18 14:18 01/01/18 14:05 01/01/18 14:08 01/01/18 15:15 Oxygen Delivery Method Room Air Weight: 96.7 kg Body Mass Index (BMI) 30.6 Laboratory Tests Past 24 Hrs 01/01/18 15:45 Troponin I Pending Assessment/Plan All Active Problems (Last Updated 12/27/17 @ 13:37 by Ebony Cross) Acute on chronic systolic CHF (congestive heart failure) (Acute) Syncope (Acute) Pleural effusion, right (Acute) Pre-operative cardiovascular examination (Acute) Inguinal hernia bilateral, non-recurrent (Acute) History of renal stent (Acute) Hx of hemorrhoidectomy (Acute) Hx of basal cell carcinoma excision (Acute) Shortness of breath (Acute) Gout (Acute) Arthritis (Acute) Fatigue (Acute) The patient is a 77 year old M with PMHx of multiple myeloma, on oral chemotherapy, hypertension, chronic atrial fibrillation, on coumadin, cognitive impairment who has recently established with Dr. Billy and had an ECHO done which showed EF 15%, severe global hypokinesis. 1. Acute on chronic CHF, EF 15%, s/p AICD, on oral lasix, admitting BNP >2800, CXR points to acute CHF, will admit, IV lasix 40mg BID, strict I & Os, daily wts 2. Fall, ? Syncope, unclear, fell whilst sleeping in chair, CT brain is negative, CT spine is negative, bruise on forehead from fall, will monitor, Tylenol prn for pain, topical Bengay for neck pain 3. Chronic Atrial fibrillation, rate controlled, on Lovenox bridging for procedure 4. Severe aortic stenosis, AV area on ECHO 1.0cm2, going for OSWALDO, possibly by Dr. Billy 5. Cardiomyopathy, non-ischemic for now, no reported h/o heart cath, going also for heart cath on 6. Multiple myeloma, on oral chemo 7. CKD stage 3, Cr at baseline, s/p nephrectomy, will monitor with use of Lasix 8. DVT PPx- pt is on Lovenox therapeutic dosing Code Visit Inpatient E&M: 78570 Init Hosp L3
--- NOTE | 2018-01-01 16:02 | HP.PCM_ITS ---
Problem List (1) Acute on chronic systolic CHF (congestive heart failure) Status: Acute (2) Type 2 diabetes mellitus Status: Chronic Qualifiers: Diabetes mellitus penitentiary insulin use: with penitentiary use Diabetes mellitus complication status: with unspecified complications Qualified Code(s) : E11.8 - Type 2 diabetes mellitus with unspecified complications; Z79.4 - oil heaterman (current) use of insulin (3) Multiple myeloma Status: Chronic Qualifiers: Multiple myeloma remission status: unspecified Qualified Code(s): C90.00 - Multiple myeloma not having achieved remission (4) Hyperlipidemia Status: Chronic Qualifiers: Hyperlipidemia type: unspecified Qualified Code(s): E78.5 - Hyperlipidemia , unspecified (5) HTN (hypertension) Status: Chronic Qualifiers: Hypertension type: essential hypertension Qualified Code(s): I10 - Essential (primary) hypertension History of Present Illness Date of Admission: 01/01/18 Chief Complaint: Shortness of breath, fall The patient is a 77 year old M with PMHx of multiple myeloma, on oral chemotherapy, hypertension, chronic atrial fibrillation, on coumadin, cognitive impairment who has recently established with Dr. Billy and had an ECHO done which showed EF 15%, severe global hypokinesis. He has severe aortic stenosis also and was due to get a OSWALDO, left and right heart cath on . History is per as patient appears confused. He has been sleeping in a recliner for weeks now and sleeps with his head frequently almost touching his knees. His heard a loud thump on the morning of the admission, came to find him lying on the floor. He did not look confused, it was unclear if he passed out. He denied chest pain, dizziness or palpitations. He had some bruises to his head. He was seen in the ED and CT brain was negative for any intracranial abnormalities. His blood work and CHF was however suggestive of acute CHF. Past Medical History Past Medical History (Chronic Problems): Chronic Problems (Last Updated 12/27/17 @ 13:37 by Ebony Cross) AICD (automatic cardioverter/defibrillator) present (Chronic) Nonrheumatic aortic (valve) stenosis (Chronic) per echo 12/27/17 Premature ventricular contractions (Chronic) First degree AV block (Chronic) Nonischemic cardiomyopathy (Chronic) EF 20-25% per echo Apr 2017 History of cardioversion (Chronic 08/15/17) OSWALDO, DCCV and ICD implant for nonischemic CMP @ [facility] per Dr. Gifford History of nephrectomy (Chronic) Mentioned in EP procedure done @ [facility] 2018: verify with pt at appt. Cardiac defibrillator in situ (Chronic) with pacemaker, prophylactic for EF of 20-25%/sudden cardiac prevention: Dual Chamber, [employer]tronic Evera MRI XT DR model DDM B1D4, serial number [id number] per Dr. 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 Sears for oncology Chronic kidney disease, stage 4 (severe) (Chronic) Chronic systolic CHF (congestive heart failure), NYHA class 3 (Chronic) Ear lesion (Chronic) Type 2 diabetes mellitus (Chronic) Multiple myeloma (Chronic) History of atrial fibrillation (Chronic) Hyperlipidemia (Chronic) HTN (hypertension) (Chronic) Medical History: Medical History (Last Updated 12/27/17 @ 13:37 by Ebony Cross) Nonrheumatic aortic (valve) stenosis (Chronic) I35.0 per echo 12/27/17 Pleural effusion, right (Acute) J90 Premature ventricular contractions (Chronic) I49.3 First degree AV block (Chronic) I44.0 Nonischemic cardiomyopathy (Chronic) I42.8 EF 20-25% per echo Apr 2017 Cardiac defibrillator in situ (Chronic) Z95.810 with pacemaker, prophylactic for EF of 20-25%/sudden cardiac prevention: Dual Chamber, [employer]tronic Evera MRI XT DR model DDM B1D4, serial number [id number] per Dr. 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 Sears for oncology Chronic kidney disease, stage 4 (severe) (Chronic) N18.4 Inguinal hernia bilateral, non-recurrent (Acute) K40.20 Chronic systolic CHF (congestive heart failure), NYHA class 3 (Chronic) I50.22 Shortness of breath (Acute) R06.02 Gout (Acute) M10.9 Arthritis (Acute) M19.90 Fatigue (Acute) R53.83 Ear lesion (Chronic) H93.90 Type 2 diabetes mellitus (Chronic) E11.9 Multiple myeloma (Chronic) C90.00 History of atrial fibrillation (Chronic) Z86.79 Hyperlipidemia (Chronic) E78.5 HTN (hypertension) (Chronic) I10 Allergies No Known Allergies Allergy (Verified 01/01/18 11:30) Home Medications: Ambulatory Orders Medication Instructions Recorded Amitriptyline HCl [Elavil] 25 mg PO QHS 06/05/17 Cholecalciferol (Vitamin D3) 4,000 unit PO DAILY 06/05/17 [Vitamin D3] Gabapentin [Neurontin] 300 mg PO BID 06/05/17 Gabapentin [Neurontin] 600 mg PO QHS 06/05/17 Insulin Detemir [Levemir (BKC)] 30 units SC QHS 06/05/17 Lenalidomide [Revlimid] 2.5 mg PO DAILY 06/05/17 Metoprolol Succinate [Toprol Xl] 25 mg PO DAILY 06/05/17 Pravastatin [Pravachol] 20 mg PO QHS 06/05/17 Warfarin [Coumadin (PBKC)] 0.5 mg PO SUWE 06/05/17 Warfarin [Coumadin (PBKC)] 1 mg PO MOTUTHFRSA 06/05/17 furosemide 40 mg tablet 20 mg PO DAILY tab 12/05/17 aspirin 81 mg tablet,delayed 81 mg PO DAILY 12/25/17 release Clopidogrel Bisulfate [Clopidogrel] 75 mg PO DAILY 01/01/18 Enoxaparin Sodium [Lovenox] 80 mg SC Q12H 01/01/18 Surgical History: Surgical History (Last Reviewed 12/25/17 @ 11:42 by Ebony Cross) History of cardioversion (Chronic) Onset Date: 08/15/17 Z98.890 OSWALDO, DCCV and ICD implant for nonischemic CMP @ [facility] per Dr. Gifford History of nephrectomy (Chronic) Z90.5 Mentioned in EP procedure done @ [facility] 2018: verify with pt at appt. History of renal stent (Acute) Z98.890 Right side Hx of hemorrhoidectomy (Acute) Z98.890 Hx of basal cell carcinoma excision (Acute) Z98.890, Z85.828 inside right ear- 05/2017 Surgical History: - - s/p nephrectomy, hemorrhoidectomy, h/o renal stent, h/o cardioversion Psychiatric History: No pertinent psych hx Lives: Spouse/ Significant Other Smoking Status: Former smoker Tobacco Use: Cigarettes Alcohol: None Drugs: None - *Family History Maternal Family History: Family History (Last Reviewed 12/25/17 @ 11:42 by Ebony Cross) Sister Heart disease Diabetes Hypertension Mother CAD (coronary artery disease) Myocardial infarction Brother CAD (coronary artery disease) Myocardial infarction Father Aneurysm History Items: Heart Disease Sibling Family History: Family History (Last Reviewed 12/25/17 @ 11:42 by Ebony Cross) Sister Heart disease Diabetes Hypertension Mother CAD (coronary artery disease) Myocardial infarction Brother CAD (coronary artery disease) Myocardial infarction Father Aneurysm History Items: Heart Disease Paternal Family History: Family History (Last Reviewed 12/25/17 @ 11:42 by Ebony Cross) Sister Heart disease Diabetes Hypertension Mother CAD (coronary artery disease) Myocardial infarction Brother CAD (coronary artery disease) Myocardial infarction Father Aneurysm History Items: - - Aortic dissection Review of Systems Constitutional: Denies: Anorexia, Chills, Fever, Malaise, Weakness, Weight Change Eyes: Denies: Blurred vision, Cataracts, Conjunctivae Inflammation, Double vision, Pain, Redness, Vision Change HEENT: Denies: Difficulty Hearing, Difficulty Swallowing, Head Aches, Hearing Changes, Sinus Congestion, Sinus Drainage, Sore Throat Cardiovascular: Reports: Orthopnea, Paroxysmal Noc. Dyspnea, Syncope. Denies: Chest Pain, Claudication, Palpitations Respiratory: Reports: Shortness of breath at rest, Shortness of breath upon exertion. Denies: Cough, Sputum production Gastrointestinal: Denies: Abdominal Pain, Nausea, Vomiting Genitourinary: Denies: Dysuria Musculoskeletal: Denies: Joint Pain, Joint stiffness, Joint swelling, Joint Tenderness Skin: Denies: Rash, Wounds Neurological: Denies: Numbness, Tingling, Focal weakness Psychiatric: Denies: Anxiety, Depression, Homicidal Ideations, Suicidal Ideations Hematologic/ Lymphatic: Denies: Easy Bruising, Easy Bleeding VTE Information - Inpt Only VTE Present on Admission: No VTE Pharm Prophylaxis ordered?: Yes Patient Problems: Active and Suspected Problems (Last Updated 12/27/17 @ 13:37 by Ebony Cross) Acute on chronic systolic CHF (congestive heart failure) (Acute) Syncope (Acute) - Physical Exam General: Alert, Cooperative, Confused, - - in mild respiratory distress HEENT: Atraumatic, PERRLA, EOMI, Normocephalic, - - ecchymosis on forehead Oral: Moist Mucosa Neck: Supple, No JVD, Negative Carotid Bruits Lungs: Normal air movement, Diminished - at the lung bases Cardiovascular: Regular rate, Regular Rhythm, Normal S1, Normal S2, No murmurs Abdomen: Bowel Sounds Present, Soft, Non Tender, Non-Distended, No Hepato- splenomegaly Extremities: Edema - bilateral leg edema, with chronic venous stasis changes, pitting, +2, non-edema. Skin: No rashes, No breakdown Musculoskeletal: No Tenderness to Palpation of Joints or Extremities Neurological: Cranial nerves II-XII grossly intact, Neuro grossly intact Psych/Mental Status: Normal Affect, Appropriate Vital Signs Temp Pulse Resp BP Pulse Ox 98.4 F 104 H 18 143/94 H 92 01/01/18 14:05 01/01/18 14:18 01/01/18 14:05 01/01/18 14:08 01/01/18 15:15 Oxygen Delivery Method Room Air Weight: 96.7 kg Body Mass Index (BMI) 30.6 Laboratory Tests Past 24 Hrs 01/01/18 15:45 Troponin I Pending Assessment/Plan All Active Problems (Last Updated 12/27/17 @ 13:37 by Ebony Cross) Acute on chronic systolic CHF (congestive heart failure) (Acute) Syncope (Acute) Pleural effusion, right (Acute) Pre-operative cardiovascular examination (Acute) Inguinal hernia bilateral, non-recurrent (Acute) History of renal stent (Acute) Hx of hemorrhoidectomy (Acute) Hx of basal cell carcinoma excision (Acute) Shortness of breath (Acute) Gout (Acute) Arthritis (Acute) Fatigue (Acute) The patient is a 77 year old M with PMHx of multiple myeloma, on oral chemotherapy, hypertension, chronic atrial fibrillation, on coumadin, cognitive impairment who has recently established with Dr. Billy and had an ECHO done which showed EF 15%, severe global hypokinesis. 1. Acute on chronic CHF, EF 15%, s/p AICD, on oral lasix, admitting BNP >2800, CXR points to acute CHF, will admit, IV lasix 40mg BID, strict I & Os, daily wts 2. Fall, ? Syncope, unclear, fell whilst sleeping in chair, CT brain is negative , CT spine is negative, bruise on forehead from fall, will monitor, Tylenol prn for pain, topical Bengay for neck pain 3. Chronic Atrial fibrillation, rate controlled, on Lovenox bridging for procedure 4. Severe aortic stenosis, AV area on ECHO 1.0cm2, going for OSWALDO, possibly by Dr. Billy 5. Cardiomyopathy, non-ischemic for now, no reported h/o heart cath, going also for heart cath on 6. Multiple myeloma, on oral chemo 7. CKD stage 3, Cr at baseline, s/p nephrectomy, will monitor with use of Lasix 8. DVT PPx- pt is on Lovenox therapeutic dosing Code Visit Inpatient E&M: 53773 Init Hosp L3
--- NOTE | 2018-01-01 17:12 | PCM.CONS.C ---
Problem List (1) Syncope Status: Acute (2) Acute on chronic systolic CHF (congestive heart failure) Status: Acute (3) Nonischemic cardiomyopathy Status: Chronic Comment: EF 20-25% per echo Apr 2017 (4) Nonrheumatic aortic (valve) stenosis Status: Chronic Comment: per echo 12/27/17 (5) History of atrial fibrillation Status: Chronic (6) AICD (automatic cardioverter/defibrillator) present Status: Chronic (7) Hyperlipidemia Status: Chronic Qualifiers: Hyperlipidemia type: unspecified Qualified Code(s): E78.5 - Hyperlipidemia, unspecified (8) HTN (hypertension) Status: Chronic Qualifiers: Hypertension type: essential hypertension Qualified Code(s): I10 - Essential (primary) hypertension (9) Type 2 diabetes mellitus Status: Chronic Qualifiers: Diabetes mellitus longterm insulin use: with longterm use Diabetes mellitus complication status: with unspecified complications Qualified Code(s): E11.8 - Type 2 diabetes mellitus with unspecified complications; Z79.4 - longterm (current) use of insulin Reason for Consult Date of Consultation: 01/01/18 History of Present Illness: The patient is a 77 year old white male who has previously been evaluated by Dr. Billy of the [facility] for concerns of underlying CHF, presumed non-CAD related cardiomyopathy, aortic valve stenosis, atrial fibrillation, and ICD therapy superimposed upon hyperlipidemia, hypertension, and diabetes mellitus who is now referred for evaluation of syncope and concerns of acute on chronic systolic mediated CHF. The patient does not recall all the details of his advanced. He states he remembers sitting in the chair, leaning forward, falling forward, and apparently losing consciousness. He struck his head. He is noted to have areas of ecchymoses on his right forehead. He was evaluated at the [facility] emergency department and underwent evaluation by radiologic studies which demonstrated no obvious C-spine injury or acute FOOTWEAR STITCHER injury/event. He was subsequently placed in the PCU for further evaluation and care. There have been concerns of alteration in his mental status as well as concerns of acute on chronic systolic mediated CHF. At the present time he does not recall having chest discomfort. He does seem to recall feeling short of breath and dyspneic. He does not recall any specifics of acute orthopnea or PND. He has had lower extremity peripheral pitting edema. He does not recall his ICD discharging. His laboratory studies have demonstrated indeterminate troponin I levels and an elevated BNP level. His electrocardiogram demonstrated atrial fibrillation with low voltage QRS in the limb leads as well as poor R-wave progression along with nonspecific ST and T-wave abnormality. A chest x-ray suggested findings suspicious for CHF/pulmonary edema/pleural effusion. It also appear to demonstrate findings compatible with a dual-chamber ICD. [] Past Medical History Allergies/Adverse Reactions: Allergies No Known Allergies Allergy (Verified 01/01/18 11:30) Home Medications: Ambulatory Orders Medication Instructions Recorded Amitriptyline HCl [Elavil] 25 mg PO QHS 06/05/17 Cholecalciferol (Vitamin D3) 4,000 unit PO DAILY 06/05/17 [Vitamin D3] Gabapentin [Neurontin] 300 mg PO BID 06/05/17 Gabapentin [Neurontin] 600 mg PO QHS 06/05/17 Insulin Detemir [Levemir (BKC)] 30 units SC QHS 06/05/17 Lenalidomide [Revlimid] 2.5 mg PO DAILY 06/05/17 Metoprolol Succinate [Toprol Xl] 25 mg PO DAILY 06/05/17 Pravastatin [Pravachol] 20 mg PO QHS 06/05/17 Warfarin [Coumadin (PBKC)] 0.5 mg PO SUWE 06/05/17 Warfarin [Coumadin (PBKC)] 1 mg PO MOTUTHFRSA 06/05/17 furosemide 40 mg tablet 20 mg PO DAILY tab 12/05/17 aspirin 81 mg tablet,delayed 81 mg PO DAILY 12/25/17 release Clopidogrel Bisulfate [Clopidogrel] 75 mg PO DAILY 01/01/18 Enoxaparin Sodium [Lovenox] 80 mg SC Q12H 01/01/18 Past Medical History (Chronic Problems): Chronic Problems (Last Updated 12/27/17 @ 13:37 by Ebony Cross) AICD (automatic cardioverter/defibrillator) present (Chronic) Nonrheumatic aortic (valve) stenosis (Chronic) per echo 12/27/17 Premature ventricular contractions (Chronic) First degree AV block (Chronic) Nonischemic cardiomyopathy (Chronic) EF 20-25% per echo Apr 2017 History of cardioversion (Chronic 08/15/17) OSWALDO, DCCV and ICD implant for nonischemic CMP @ [facility] per Dr. Gifford History of nephrectomy (Chronic) Mentioned in EP procedure done @ [facility] 2018: verify with pt at appt. Cardiac defibrillator in situ (Chronic) with pacemaker, prophylactic for EF of 20-25%/sudden cardiac prevention: Dual Chamber, Medtronic Evera MRI XT DR model DDM B1D4, serial number [id number] per Dr. 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 Sears for oncology Chronic kidney disease, stage 4 (severe) (Chronic) Chronic systolic CHF (congestive heart failure), NYHA class 3 (Chronic) Ear lesion (Chronic) Type 2 diabetes mellitus (Chronic) Multiple myeloma (Chronic) History of atrial fibrillation (Chronic) Hyperlipidemia (Chronic) HTN (hypertension) (Chronic) Lives: Spouse/ Significant Other Smoking Status: Former smoker Tobacco Use: Cigarettes Alcohol: None Drugs: None Review of Systems - Review of Systems General: Denies: Fever, Night Sweats, Fatigue Cardiovascular: Reports: Shortness of Breath, Peripheral Edema, Syncope. Denies: Chest Discomfort, Orthopnea, PND, Palpitations, Lightheadedness, Dizziness, Near Syncope Respiratory: Reports: Shortness of Breath. Denies: Cough, Sputum Production, Hemoptysis Gastrointestinal: Denies: Hematemesis, Hematochezia, Melena Genitourinary: Denies: Dysuria, Hematuria Skin: Denies: Rash Subjectve: This is a 77-year-old white male who appears to be resting comfortably at the moment in no acute distress. Objective: Vital Signs Temp Pulse Resp BP Pulse Ox 98.4 F 104 H 18 143/94 H 92 01/01/18 14:05 01/01/18 14:18 01/01/18 14:05 01/01/18 14:08 01/01/18 15:15 Oxygen Delivery Method Room Air Weight: 213 lb 2.992 oz Body Mass Index (BMI) 30.6 General: Awake, Cooperative, Ill Appearing HEENT: - - Right forehead: Ecchymoses Oral: Moist Mucosa Neck: Supple, Good ROM, Positive JVD Lungs: Rales - Jet Bases Cardiovascular: Irregular Rhythm, Normal S1, Normal S2 Abdomen: Bowel Sounds Present, Soft, Non Tender Extremities: Mild RLE Edema, Mild LLE Edema 01/01/18 15:45: Troponin I 0.376 H Rhythm: Atrial fibrillation EKG: As noted above ECHO: 12/27/2017: Left ventricle dilated, globally dysfunctional, LVEF of 15%; right ventricle dilated and globally dysfunctional; severe biatrial enlargement; mild MR; mild TR; moderate aortic valve stenosis; mild atherosclerosis of the aortic arch; estimated RV systolic pressure 49 mmHg CXR: As noted above: Please see official report Assessment/Plan 1. Syncope The patient appears to have had a syncopal event. The etiology is unclear as to whether this was related to an underlying cardiac dysrhythmia, change in his hemodynamics/vital signs, a separate noncardiovascular/possibly neurologically related event, etc. At the present time from a cardiovascular standpoint he is being monitored. His ICD can be interrogated for any obvious dysrhythmias that may have occurred at the same time frame as his event. He will need to be monitored with respect to his vital signs and any significant fluctuations especially hypotension that may contribute to such events. He can continue further noncardiac/neurologic evaluation per internal medicine as deemed appropriate. 2. Acute on chronic systolic CHF There are concerns patient has acute on chronic systolic CHF. He will need to be monitored. He will need continued adjustment of his medications to assist with his volume status. 3. 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 This included noninvasive studies. Based on his outpatient cardiovascular evaluation there has been tentative plans for coronary angiography to evaluate for any obvious underlying CAD that would be can bring to his symptoms and findings that would require revascularization therapy. This may still need to be done when the patient is able to do so. In the interim he will continue medical management for his cardiomyopathy. Ideally this would include agents such as nitrates, beta-blockers, diuretics, afterload reducing agents, etc. 4. Aortic valve stenosis The patient has been reported as having aortic valve stenosis. Again this could be contributing to symptoms and/or findings. This may need to be further evaluated noninvasively or invasively depending upon his clinical course. 5. Atrial fibrillation The patient appears to be remaining in atrial fibrillation. He will continue medical management as best as possible with respect to rate limiting therapy. He has been on anticoagulant therapy. This may have to be temporarily interrupted with respect to his recent event/injury as well as the need for upcoming invasive evaluation and care. 6. ICD The patient does have an ICD. Again a request can be made to interrogate his ICD for any obvious dysrhythmias of may have correlated with his syncopal event. 7. Hyperlipidemia The patient will continue lipid-lowering therapy. 8. Hypertension The patient's blood pressure will need to be monitored. His medications can be adjusted as needed. 9. Diabetes mellitus The patient will continue evaluation care per internal medicine. Also, the patient has a variety of noncardiovascular medical issues as noted in his admission history and physical examination. He will need to continue evaluation care per internal medicine for those issues. This note was generated with [employer] dictation software. It may contain incorrect words, spelling, and punctuation that were not noted in checking the note before signing.
--- NOTE | 2018-01-01 17:17 | CON.PCM_ITS ---
Problem List (1) Syncope Status: Acute (2) Acute on chronic systolic CHF (congestive heart failure) Status: Acute (3) Nonischemic cardiomyopathy Status: Chronic Comment: EF 20-25% per echo Apr 2017 (4) Nonrheumatic aortic (valve) stenosis Status: Chronic Comment: per echo 12/27/17 (5) History of atrial fibrillation Status: Chronic (6) AICD (automatic cardioverter/defibrillator) present Status: Chronic (7) Hyperlipidemia Status: Chronic Qualifiers: Hyperlipidemia type: unspecified Qualified Code(s): E78.5 - Hyperlipidemia , unspecified (8) HTN (hypertension) Status: Chronic Qualifiers: Hypertension type: essential hypertension Qualified Code(s): I10 - Essential (primary) hypertension (9) Type 2 diabetes mellitus Status: Chronic Qualifiers: Diabetes mellitus predatory animal exterminator insulin use: with predatory animal exterminator use Diabetes mellitus complication status: with unspecified complications Qualified Code(s) : E11.8 - Type 2 diabetes mellitus with unspecified complications; Z79.4 - terminal superintendent (current) use of insulin Reason for Consult Date of Consultation: 01/01/18 History of Present Illness: The patient is a 77 year old white male who has previously been evaluated by Dr. Billy of the [facility] for concerns of underlying CHF, presumed non-CAD related cardiomyopathy, aortic valve stenosis, atrial fibrillation, and ICD therapy superimposed upon hyperlipidemia, hypertension, and diabetes mellitus who is now referred for evaluation of syncope and concerns of acute on chronic systolic mediated CHF. The patient does not recall all the details of his advanced. He states he remembers sitting in the chair, leaning forward, falling forward, and apparently losing consciousness. He struck his head. He is noted to have areas of ecchymoses on his right forehead. 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 He was subsequently placed in the PCU for further evaluation and care. There have been concerns of alteration in his mental status as well as concerns of acute on chronic systolic mediated CHF. At the present time he does not recall having chest discomfort. He does seem to recall feeling short of breath and dyspneic. He does not recall any specifics of acute orthopnea or PND. He has had lower extremity peripheral pitting edema. He does not recall his ICD discharging. His laboratory studies have demonstrated indeterminate troponin I levels and an elevated BNP level. His electrocardiogram demonstrated atrial fibrillation with low voltage QRS in the limb leads as well as poor R-wave progression along with nonspecific ST and T-wave abnormality. A chest x-ray suggested findings suspicious for CHF/pulmonary edema/pleural effusion. It also appear to demonstrate findings compatible with a dual-chamber ICD. [] Past Medical History Allergies/Adverse Reactions: Allergies No Known Allergies Allergy (Verified 01/01/18 11:30) Home Medications: Ambulatory Orders Medication Instructions Recorded Amitriptyline HCl [Elavil] 25 mg PO QHS 06/05/17 Cholecalciferol (Vitamin D3) 4,000 unit PO DAILY 06/05/17 [Vitamin D3] Gabapentin [Neurontin] 300 mg PO BID 06/05/17 Gabapentin [Neurontin] 600 mg PO QHS 06/05/17 Insulin Detemir [Levemir (BKC)] 30 units SC QHS 06/05/17 Lenalidomide [Revlimid] 2.5 mg PO DAILY 06/05/17 Metoprolol Succinate [Toprol Xl] 25 mg PO DAILY 06/05/17 Pravastatin [Pravachol] 20 mg PO QHS 06/05/17 Warfarin [Coumadin (PBKC)] 0.5 mg PO SUWE 06/05/17 Warfarin [Coumadin (PBKC)] 1 mg PO MOTUTHFRSA 06/05/17 furosemide 40 mg tablet 20 mg PO DAILY tab 12/05/17 aspirin 81 mg tablet,delayed 81 mg PO DAILY 12/25/17 release Clopidogrel Bisulfate [Clopidogrel] 75 mg PO DAILY 01/01/18 Enoxaparin Sodium [Lovenox] 80 mg SC Q12H 01/01/18 Past Medical History (Chronic Problems): Chronic Problems (Last Updated 12/27/17 @ 13:37 by Ebony Cross) AICD (automatic cardioverter/defibrillator) present (Chronic) Nonrheumatic aortic (valve) stenosis (Chronic) per echo 12/27/17 Premature ventricular contractions (Chronic) First degree AV block (Chronic) Nonischemic cardiomyopathy (Chronic) EF 20-25% per echo Apr 2017 History of cardioversion (Chronic 08/15/17) OSWALDO, DCCV and ICD implant for nonischemic CMP @ [facility] per Dr. Gifford History of nephrectomy (Chronic) Mentioned in EP procedure done @ [facility] 2018: verify with pt at appt. Cardiac defibrillator in situ (Chronic) with pacemaker, prophylactic for EF of 20-25%/sudden cardiac prevention: Dual Chamber, Medtronic Evera MRI XT DR model DDM B1D4, serial number [id number] per Dr. 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 Sears for oncology Chronic kidney disease, stage 4 (severe) (Chronic) Chronic systolic CHF (congestive heart failure), NYHA class 3 (Chronic) Ear lesion (Chronic) Type 2 diabetes mellitus (Chronic) Multiple myeloma (Chronic) History of atrial fibrillation (Chronic) Hyperlipidemia (Chronic) HTN (hypertension) (Chronic) Lives: Spouse/ Significant Other Smoking Status: Former smoker Tobacco Use: Cigarettes Alcohol: None Drugs: None Review of Systems - Review of Systems General: Denies: Fever, Night Sweats, Fatigue Cardiovascular: Reports: Shortness of Breath, Peripheral Edema, Syncope. Denies : Chest Discomfort, Orthopnea, PND, Palpitations, Lightheadedness, Dizziness, Near Syncope Respiratory: Reports: Shortness of Breath. Denies: Cough, Sputum Production, Hemoptysis Gastrointestinal: Denies: Hematemesis, Hematochezia, Melena Genitourinary: Denies: Dysuria, Hematuria Skin: Denies: Rash Subjectve: This is a 77-year-old white male who appears to be resting comfortably at the moment in no acute distress. Objective: Vital Signs Temp Pulse Resp BP Pulse Ox 98.4 F 104 H 18 143/94 H 92 01/01/18 14:05 01/01/18 14:18 01/01/18 14:05 01/01/18 14:08 01/01/18 15:15 Oxygen Delivery Method Room Air Weight: 213 lb 2.992 oz Body Mass Index (BMI) 30.6 General: Awake, Cooperative, Ill Appearing HEENT: - - Right forehead: Ecchymoses Oral: Moist Mucosa Neck: Supple, Good ROM, Positive JVD Lungs: Rales - Jet Bases Cardiovascular: Irregular Rhythm, Normal S1, Normal S2 Abdomen: Bowel Sounds Present, Soft, Non Tender Extremities: Mild RLE Edema, Mild LLE Edema 01/01/18 15:45: Troponin I 0.376 H Rhythm: Atrial fibrillation EKG: As noted above ECHO: 12/27/2017: Left ventricle dilated, globally dysfunctional, LVEF of 15%; right ventricle dilated and globally dysfunctional; severe biatrial enlargement ; mild MR; mild TR; moderate aortic valve stenosis; mild atherosclerosis of the aortic arch; estimated RV systolic pressure 49 mmHg CXR: As noted above: Please see official report Assessment/Plan 1. Syncope The patient appears to have had a syncopal event. The etiology is unclear as to whether this was related to an underlying cardiac dysrhythmia, change in his hemodynamics/vital signs, a separate noncardiovascular/possibly neurologically related event, etc. At the present time from a cardiovascular standpoint he is being monitored. His ICD can be interrogated for any obvious dysrhythmias that may have occurred at the same time frame as his event. He will need to be monitored with respect to his vital signs and any significant fluctuations especially hypotension that may contribute to such events. He can continue further noncardiac/neurologic evaluation per internal medicine as deemed appropriate. 2. Acute on chronic systolic CHF There are concerns patient has acute on chronic systolic CHF. He will need to be monitored. He will need continued adjustment of his medications to assist with his volume status. 3. 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 This included noninvasive studies. Based on his outpatient cardiovascular evaluation there has been tentative plans for coronary angiography to evaluate for any obvious underlying CAD that would be can bring to his symptoms and findings that would require revascularization therapy. This may still need to be done when the patient is able to do so. In the interim he will continue medical management for his cardiomyopathy. Ideally this would include agents such as nitrates, beta-blockers, diuretics, afterload reducing agents, etc. 4. Aortic valve stenosis The patient has been reported as having aortic valve stenosis. Again this could be contributing to symptoms and/or findings. This may need to be further evaluated noninvasively or invasively depending upon his clinical course. 5. Atrial fibrillation The patient appears to be remaining in atrial fibrillation. He will continue medical management as best as possible with respect to rate limiting therapy. He has been on anticoagulant therapy. This may have to be temporarily interrupted with respect to his recent event/injury as well as the need for upcoming invasive evaluation and care. 6. ICD The patient does have an ICD. Again a request can be made to interrogate his ICD for any obvious dysrhythmias of may have correlated with his syncopal event. 7. Hyperlipidemia The patient will continue lipid-lowering therapy. 8. Hypertension The patient's blood pressure will need to be monitored. His medications can be adjusted as needed. 9. Diabetes mellitus The patient will continue evaluation care per internal medicine. Also, the patient has a variety of noncardiovascular medical issues as noted in his admission history and physical examination. He will need to continue evaluation care per internal medicine for those issues. This note was generated with [employer] dictation software. It may contain incorrect words, spelling, and punctuation that were not noted in checking the note before signing.
[2018-01-01] MEDS: Enoxaparin 80 MG/0.8 ML Syringe SC (17:24)
[2018-01-01] MEDS: 0.9% NaCl Peripheral Flush Adult/Peds IV (17:24)
[2018-01-01] MEDS: Pravastatin 20 MG Tablet PO (21:31)
[2018-01-01] MEDS: Acetaminophen 500 MG Tablet 1000 MG PO (21:31)
[2018-01-01 22:30] LABS: Bedside Glucose 123 mg/dL (70-110)
[2018-01-01 23:31] LABS: Bedside Glucose 97 mg/dL (70-110)
[2018-01-02] VITALS (15 sets, daily range): BP systolic 106–129; BP diastolic 61–90; PULSE 70–109; RESP 18–20; TEMP 36.4–36.7; O2SAT 94–99
[2018-01-02] MEDS: Acetaminophen 500 MG Tablet 1000 MG PO ×3 (06:20→22:20)
[2018-01-02 07:19] LABS: International Normalized Ratio 1.6; Prothrombin Time (Protime)PT. 19.4 SECONDS (11.7-14.9)
[2018-01-02 07:42] LABS: Anion Gap 13 (5-15); BUN 47 mg/dL (7-18); Calcium,Total 8.4 mg/dL (8.5-10.1); Chloride 95 mmol/L (98-107); Creatinine, Serum 2.76 mg/dL (0.70-1.30); EST Glomerular Filtration Rate 24 mL/min (>60); Est Glom Filt Rate - Afr Amer 29 mL/min (>60); Estimated Creatinine Clearance 23.51 ml/min; Glucose 65 mg/dL (74-106); Sodium Level 134 mmol/L (136-145)
[2018-01-02] MEDS: Aspirin E.C. 81 MG Tablet PO (08:17)
[2018-01-02 08:52] LABS: Absolute Lymphocyte Count 0.56 X10^3/ul (0.83-4.51); Absolute Neutrophil Count 2.3 X10^3/uL (2.0-7.7); Basophil# 0.04 X10^3/uL; Basophil% 1.1 % (0-1); Differential Indicated SCAN CRITERIA MET; Eosinophil# 0.28 X10^3/uL; Eosinophils% 7.8 % (0-5); Hematocrit 41.2 % (40-54); Hemoglobin 13.4 g/dl (13.0-16.5); Lymphocyte # 0.56 X10^3/ul (4.0); Lymphocyte % 15.6 % (19-41); Mean Corp Hgb Conc 32.5 g/gl (32-36); Mean Corpuscular Hgb 28.6 pg (27.0-32.0); Mean Corpuscular Volume 87.8 fL (80-94); Monocyte# 0.38 X10^3/uL; Monocyte% 10.6 % (0-10); Neutrophil # 2.33 X10^3/uL (2.7-7.7); Neutrophil % 64.9 % (47-70); POSITIVE COUNT NO; POSITIVE DIFFERENTIAL YES; POSITIVE MORPHOLOGY NO; Platelet Count 109 K/mm3 (150-450); RBC Distribution Width CV 18.4 % (11.6-14.6); RBC Distribution Width SD 59.1 fl (35.1-43.9); Red Blood Count 4.69 M/mm3 (4.6-6.2); White Blood Count 3.6 K/mm3 (4.4-11.0)
[2018-01-02] MEDS: Metoprolol(XL)Succ 25 MG Tablet PO (10:38)
[2018-01-02] MEDS: Furosemide 40 MG/4 ML Vial IV ×2 (10:40→17:36)
[2018-01-02] MEDS: Enoxaparin 80 MG/0.8 ML Syringe SC (10:40)
[2018-01-02] MEDS: CLARIFY ORDER NOTE (13:07)
--- NOTE | 2018-01-02 14:41 | PN_ITS ---
Patient Problems: Active and Suspected Problems (Last Updated 12/27/17 @ 13:37 by Ebony Cross) Acute on chronic systolic CHF (congestive heart failure) (Acute) Syncope (Acute) Subjective: Patient was seen and examined. Denies any new complains. Still confused. Objective: - Physical Exam General: Alert, Cooperative, Confused, not in distress HEENT: Atraumatic, PERRLA, EOMI, Normocephalic, - - ecchymosis on forehead Oral: Moist Mucosa Neck: Supple, No JVD, Negative Carotid Bruits Lungs: Normal air movement, Diminished - at the lung bases Cardiovascular: Regular rate, Regular Rhythm, Normal S1, Normal S2, No murmurs Abdomen: Bowel Sounds Present, Soft, Non Tender, Non-Distended, No Hepato- splenomegaly Extremities: Edema - bilateral leg edema, with chronic venous stasis changes, pitting, +2, non-edema. Skin: No rashes, No breakdown Musculoskeletal: No Tenderness to Palpation of Joints or Extremities Neurological: Cranial nerves II-XII grossly intact, Neuro grossly intact Psych/Mental Status: Normal Affect, Appropriate Vitals/I&O's: Vital Signs Temp Pulse Resp BP Pulse Ox 97.6 F L 109 H 18 106/61 99 01/02/18 13:25 01/02/18 13:25 01/02/18 14:06 01/02/18 13:25 01/02/18 14:06 Oxygen Delivery Method Room Air Weight: 96.7 kg Body Mass Index (BMI) 30.6 Intake and Output for Last 24 Hours 12/31/17 01/01/18 01/02/18 23:59 23:59 23:59 Intake Total 600 / 600 150 / 150 Output Total 4025 / 4025 650 / 650 Balance -3425 / -3425 -500 / -500 Laboratory Results 01/01/18 15:45: Troponin I 0.376 H 01/01/18 17:47: Troponin I 0.348 H 01/01/18 21:27: POC Glucose 123 H 01/01/18 23:22: POC Glucose 97 01/02/18 06:16: WBC 3.6 L, RBC 4.69, Hgb 13.4, Hct 41.2, MCV 87.8, MCH 28.6, MCHC 32.5, RDW 18.4 H, RDW Differential 59.1 H, Plt Count 109 L, MPV 11.0, Immature Gran % (Auto) 0.000, Neut % (Auto) 64.9, Lymph % (Auto) 15.6 L, [place] % (Auto) 10.6 H, Eos % (Auto) 7.8 H, Baso % (Auto) 1.1 H, Absolute Neuts (auto) 2.3, Absolute Lymphs (auto) 0.56 L, Total Counted Not Reportable 01/02/18 06:16: Sodium 134 L, Potassium 4.0, Chloride 95 L, Carbon Dioxide 26.0 , Anion Gap 13, BUN 47 H, Creatinine 2.76 H, Estim Creat Clear Calc 23.51, Est GFR (MDRD) Af Amer 29 L, Est GFR (MDRD) Non-Af 24 L, BUN/Creatinine Ratio 17.0, Glucose 65 L, Calcium 8.4 L 01/02/18 06:16: PT 19.4 H, INR 1.6 Current Medications Acetaminophen (Tylenol) 1,000 mg PO TID [facility] Last Admin: 01/02/18 13:05 Dose: 1,000 mg Aspirin (Ecotrin) 81 mg PO DAILY@0800 [facility] Last Admin: 01/02/18 08:17 Dose: 81 mg Cholecalciferol (Vitamin D) 4,000 unit PO DAILYCM [facility] Last Admin: 01/02/18 08:18 Dose: 4,000 unit Enoxaparin Sodium (Lovenox) 80 mg SC DAILY [facility] Last Admin: 01/02/18 10:40 Dose: 80 mg Furosemide (Lasix) 40 mg IV BIDLX [facility] Last Admin: 01/02/18 10:40 Dose: 40 mg Insulin Glargine (Lantus (Bkc)) 30 units SC QHS [facility] Last Admin: 01/01/18 21:32 Dose: 15 units Lenalidomide (Revlimid) 2.5 mg PO DAILY [facility] Last Admin: 01/02/18 12:11 Dose: 2.5 mg Magnesium Hydroxide (Milk Of Magnesia) 30 ml PO DAILY PRN PRN Reason: Constipation Menthol (Bengay Vanishing Scent) 1 applic TOPICAL TID PRN PRN PRN Reason: PAIN Last Admin: 01/01/18 21:35 Dose: 1 applic Metoprolol Succinate (Toprol Xl (Beta Jevon)) 25 mg PO DAILY [facility] Last Admin: 01/02/18 10:38 Dose: 25 mg Nutritional Formula (Lactose Free) (Ensure Enlive) 120 ml PO 4X/DAY [facility] Last Admin: 01/02/18 13:05 Dose: 120 ml Pravastatin Sodium (Pravachol) 20 mg PO QHS [facility] Last Admin: 01/01/18 21:31 Dose: 20 mg Sodium Chloride () 5 - 30 ml IV UD PRN PRN Reason: SALINE FLUSH Last Admin: 01/01/18 17:24 Dose: 10 ml Medical Necessity - Tobacco Use Smoking Status: Former smoker Tobacco Use: Cigarettes Assessment/Plan All Active Problems (Last Updated 12/27/17 @ 13:37 by Ebony Cross) Acute on chronic systolic CHF (congestive heart failure) (Acute) Syncope (Acute) Pleural effusion, right (Acute) Pre-operative cardiovascular examination (Acute) Inguinal hernia bilateral, non-recurrent (Acute) History of renal stent (Acute) Hx of hemorrhoidectomy (Acute) Hx of basal cell carcinoma excision (Acute) Shortness of breath (Acute) Gout (Acute) Arthritis (Acute) Fatigue (Acute) The patient is a 77 year old M with PMHx of multiple myeloma, on oral chemotherapy, hypertension, chronic atrial fibrillation, on coumadin, cognitive impairment who has recently established with Dr. Billy and had an ECHO done which showed EF 15%, severe global hypokinesis. 1. Acute on chronic CHF, EF 15%, s/p AICD, on oral lasix, admitting BNP >2800, CXR points to acute CHF, Diuresed more than 4 L of urine, no worsening of his creatinine, will continue on IV lasix 40mg BID, strict I & Os, daily wts 2. Fall, ? Syncope, unclear, fell whilst sleeping in chair, CT brain is negative , CT spine is negative, bruise on forehead from fall, will monitor, Tylenol prn for pain, topical Bengay for neck pain 3. Chronic Atrial fibrillation, rate controlled, on Lovenox therapeutic dosing 4. Severe aortic stenosis, AV area on ECHO 1.0cm2, going for OSWALDO tomorrow by Dr. Billy 5. Cardiomyopathy, non-ischemic for now, no reported h/o heart cath, going also for heart cath tomorrow 6. Multiple myeloma, on oral chemo 7. CKD stage 3, Cr at baseline, s/p nephrectomy, will monitor with use of Lasix 8. DVT PPx- pt is on Lovenox therapeutic dosing - needs to be held before procedure Code Visit Inpatient E&M: 48873 Subs Hosp L2
--- NOTE | 2018-01-02 16:00 | NURSING ---
called and spoke to , Marcy, informed that heart cath will take place 01/03. states she will not be in again tonight to sign consent. verbal consent given to this RN & CORNEL rodrigues.
--- NOTE | 2018-01-02 16:50 | CHAPLAIN ---
Type of Pastoral Visit _x__ Initial Visit ___ Follow-up Visit ___ On-call Visit ___ General Patient Visit ___ Spiritual Assessment ___ Family Conference ___ Bereavement ___ Rapid Response ___ Code Blue ___ Other (describe below) Pastoral Care Referral From _x__ Patient ___ Family ___ Nurse ___ Physician ___ Foundation Relations Manager ___ Casting Trucker ___ Other (describe below) Sacrament/Intervention ___ Active listening ___ Anointing ___ Latter Day ___ Bereavement ___ Communion ___ Lori exploration ___ _x__ Life review _x__ Prayer ___ Reconciliation ___ Sacrament of Sick ___ Supportive presence ___ Wedding ___ Other (describe below) Pastoral Comments patient answers questions and talks about his life but some of his comments are unfocused and ramblings; prayer welcomed
--- NOTE | 2018-01-02 17:02 | NURSING ---
called to inform of time for OSWALDO & heart cath on 01/03. obtained verbal consent for OSWALDO, verified with CORNEL German
[2018-01-02] MEDS: 0.9% NaCl Peripheral Flush Adult/Peds IV (17:36)
[2018-01-02] MEDS: Pravastatin 20 MG Tablet PO (22:21)
[2018-01-02] MEDS: Insulin Lispro 100 UNIT/ML INSULN.PEN SQ (22:36)
[2018-01-02 23:51] LABS: Bedside Glucose 223 mg/dL (70-110)
[2018-01-03] VITALS (21 sets, daily range): BP systolic 102–129; BP diastolic 58–84; PULSE 73–110; RESP 16–21; TEMP 36.5–36.7; O2SAT 93–98
--- NOTE | 2018-01-03 05:00 | EKG12_ITS ---
Test Reason : AM EKG Blood Pressure : / mmHG Vent. Rate : 100 BPM Atrial Rate : 113 BPM P-R Int : 000 ms QRS Dur : 110 ms QT Int : 340 ms P-R-T Axes : 000 061 184 degrees QTc Int : 438 ms Atrial fibrillation with premature ventricular or aberrantly conducted complexes Low voltage QRS Cannot rule out Inferior infarct (cited on or before 01-JAN-2018) Abnormal ECG When compared with ECG of 01-JAN-2018 11:19, No significant change was found Confirmed by LINH SCHMIDT, RICK ([id number]), art editor VIOLET GOODWIN ([id number]) on 01/09/2018 9:34:33 AM Referred By: DR CRYSTAL Confirmed By:RICK MELTON MD
[2018-01-03] MEDS: Acetaminophen 500 MG Tablet 1000 MG PO ×3 (05:42→22:52)
[2018-01-03] MEDS: Aspirin E.C. 81 MG Tablet PO (05:43)
[2018-01-03] MEDS: Metoprolol(XL)Succ 25 MG Tablet PO (05:43)
[2018-01-03] MEDS: 0.9% Normal Saline 1,000 ML 15 ML IV (05:52)
[2018-01-03 06:16] LABS: Bedside Glucose 68 mg/dL (70-110)
[2018-01-03 06:42] LABS: Absolute Lymphocyte Count 0.68 X10^3/ul (0.83-4.51); Absolute Neutrophil Count 1.9 X10^3/uL (2.0-7.7); Basophil# 0.03 X10^3/uL; Basophil% 0.9 % (0-1); Eosinophil# 0.25 X10^3/uL; Eosinophils% 7.9 % (0-5); Hemoglobin 13.8 g/dl (13.0-16.5); Lymphocyte # 0.68 X10^3/ul (4.0); Lymphocyte % 21.5 % (19-41); Mean Corp Hgb Conc 32.1 g/gl (32-36); Mean Corpuscular Hgb 28.3 pg (27.0-32.0); Mean Corpuscular Volume 88.3 fL (80-94); Mean Platelet Vol. 11.2 fl (6.2-12.0); Monocyte# 0.27 X10^3/uL; Monocyte% 8.5 % (0-10); Neutrophil # 1.93 X10^3/uL (2.7-7.7); Neutrophil % 61.2 % (47-70); Platelet Count 115 K/mm3 (150-450); RBC Distribution Width CV 18.5 % (11.6-14.6); RBC Distribution Width SD 59.3 fl (35.1-43.9); Red Blood Count 4.87 M/mm3 (4.6-6.2); White Blood Count 3.2 K/mm3 (4.4-11.0)
[2018-01-03 06:43] LABS: POSITIVE COUNT NO; POSITIVE DIFFERENTIAL NO; POSITIVE MORPHOLOGY NO
[2018-01-03 06:53] LABS: International Normalized Ratio 1.7; Prothrombin Time (Protime)PT. 19.8 SECONDS (11.7-14.9)
[2018-01-03 06:54] LABS: Partial Thromboplast Time 33.8 Seconds (24.1-36.2)
[2018-01-03 07:00] LABS: Anion Gap 11 (5-15); BUN 52 mg/dL (7-18); BUN/Creat Ratio 18.4 RATIO (10-20); Calcium,Total 8.6 mg/dL (8.5-10.1); Chloride 94 mmol/L (98-107); Creatinine, Serum 2.82 mg/dL (0.70-1.30); EST Glomerular Filtration Rate 23 mL/min (>60); Est Glom Filt Rate - Afr Amer 28 mL/min (>60); Estimated Creatinine Clearance 23.01 ml/min; Glucose 66 mg/dL (74-106); Potassium 3.8 mmol/L (3.5-5.1); Sodium Level 132 mmol/L (136-145)
[2018-01-03] MEDS: DiphenhydrAMINE 25 MG Capsule 50 MG PO (07:19)
[2018-01-03 07:55] LABS: Bedside Glucose 85 mg/dL (70-110)
--- NOTE | 2018-01-03 08:00 | ECHOTEE_ITS ---
Reason For Study: PULMONARY HYPERTENSION Medication OSWALDO probe passed with minimal difficulty. No complications were noted. [id number] gargled and swallowed. Cetacaine Topical [place] given X2 orally. Versed 1 mg given slow IVP. Fentanyl 25 mcg given slow IVP. Performed a rapid injection of agitated mix of 9 cc saline and 1cc air to assess for atrial septal defect. Left Ventricle Severely dilated left ventricle. The estimated ejection fraction is 15 %. Unable to assess diastolic dysfunction due to arrhythmia. There is severe global hypokinesis of the left ventricle. Right Ventricle Moderately dilated right ventricle. ICD or pacer leads identified within the right ventricle. Normal systolic function. The right ventricular wall motion is normal. Atria Hypermobile atrial septum. Bubble contrast study negative for right to left interatrial shunt. The left atrium is severely enlarged. Spontaneous echo contrast noted. No thrombus is detected in the left atrial appendage. The right atrium is severely enlarged. ICD or pacer leads identified within the right atrium. 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 Mitral Valve Mild diffuse mitral valve thickening. Moderate (2+) mitral valve insufficiency. Tricuspid Valve Normal tricuspid valve. Moderately severe (3+) tricuspid valve insufficiency. Mild pulmonary hypertension. Right ventricular systolic pressure estimated to be 38 mmHg. Aortic Valve Trisinus/trileaflet aortic valve. Moderate focal aortic valve thickening. Moderate focal aortic valve calcification. Mild restriction of the aortic valve. Mild aortic stenosis. Mild (1+) aortic valve insufficiency. Pulmonic Valve Normal pulmonic valve. Vessels Normal aortic root. Moderate atherosclerosis of the aortic arch. Pulmonary venous flow attenuated systolic component. Doppler Measurements & Calculations TR max raeann: 243.4 cm/sec Interpretation Summary Severely dilated left ventricle. The estimated ejection fraction is 15 %. Unable to assess diastolic dysfunction due to arrhythmia. There is severe global hypokinesis of the left ventricle. Moderately dilated right ventricle. Hypermobile atrial septum. Bubble contrast study negative for right to left interatrial shunt. The left atrium is severely enlarged. Spontaneous echo contrast noted. No thrombus is detected in the left atrial appendage. 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 Moderate (2+) mitral valve insufficiency. Moderately severe (3+) tricuspid valve insufficiency. Right ventricular systolic pressure estimated to be 38 mmHg. Mild aortic stenosis. Mild (1+) aortic valve insufficiency. Pulmonary venous flow attenuated systolic component. Pt appears to be in atrial fbrillation. Ordering Physician: Antione Billy Referring Physician: REGINA BASHIR Performed By: Nafisa Ellis RDCS
--- NOTE | 2018-01-03 08:53 | CASEMGMT ---
According to the [facility] website, the following are in-network tertiary facilities: [facility], [place], [facility], [place], [facility], [facility], [place], [facility], and . Natasha UNGER CM
--- NOTE | 2018-01-03 09:41 | CL.D_ITS ---
Patient Name: DOMINIC RODRIGUEZ Study Date: 01/03/2018 Performing: Antione Billy MD Ht: 70.07 inches 178 cm : 1940 Wt: 213.85 lbs 97 kg Age: 77 Gender: male BSA: 2.15 PROCEDURE(S) PERFORMED TB10-GTL/COR/LV CLINICAL PROFILE AND INDICATIONS Indications: Suspected CAD, Valvular Disease, Cardiac Arrythmia, LV Dysfunction, Pre-Operative Ev aluation Heart Failure: NYHA Class: 2, Newly Diagnosed: No, Heart Failure Type: Systolic Stress/Imaging Stress/Image Study Performed: No Angina Classification Anginal Classification w/in 2 Weeks: No symptoms CAD Presentations: No Sxs, no angina. Comorbidities/Risk Factors: Hypertension Dyslipidemia Prior CHF CONCLUSIONS Non obstructive coronary arteries Cardiomyopathy: Congestive Global LV systolic dysfunction- Severe Aortic Valve Stenosis- Mild RECOMMENDATIONS Restart coumadin for afib and right atrial spherical mass which appears to be either fibroelastoma or fibrinous mass on RA pacer lead as seen by OSWALDO. Pt does not appear to require TAVR at this time; Aortic valve appears to open adequately by OSWALDO and m ild peak to peak gradient by LV pigtail pullback. Pt is at moderate risk for right inguinal hernia repair with Dr Bloom. Manual sheath removal. DESCRIPTION OF PROCEDURE The patient arrived to the procedure lab. The risks and benefits of the procedure as well as a full d escription of our services here and current unavailability of surgical backup were fully explained to the patient and/or their significant other prior to the catheterization. The Timeout was completed, verifying the correct patient and procedure. The patient's procedural site was prepped and draped in the usual fashion. Local anesthetic was given subcutaneously to right groin region with Lidocaine 2%. Using a modified Seldinger technique, arterial access was obtained via the right femoral artery, a 4 Fr sheath was inserted Left Coronary Artery selective angiography was performed in multiple views us ing a 4 Fr. JL5 catheter. Right Coronary Artery selective angiography was then performed in multiple views using a 4 Fr. 3DRC catheter. Left Ventriculography was performed in RODRIGUEZ projection using a 4 Fr . Pigtail catheter. LV to AO pullback pressures were then recorded.The arterial sheath was pulled and manual compression applied until hemostasis is achieved. CORONARY ANGIOGRAPHY DOMINANCE: Right Dominant LEFT HEART ASSESSMENT Left Ventricular Ejection Fraction: by LV Gram 15 % Global Hypokinesis - Severe Depressed Left Ventricular systolic function LVEDP: 15 mmHg Elevated Left Ventricular End Diastolic Pressure LEFT MAIN: Angiographically normal LEFT ANTERIOR DECENDING ARTERY: Mild luminal irregularities less than 30% CIRCUMFLEX ARTERY: Mild luminal irregularities less than 30% RIGHT CORONARY ARTERY: Mild luminal irregularities less than 30% RT PDA: Mid - Mild luminal irregularities less than 30% COMPLICATIONS No Complications PROCEDURE MEDICATIONS Oxygen: 2 L/min via nasal cannula Oxygen: 4 L/min via nasal cannula IV Fluids: .9 NaCl increased to 150 ml/hr 01/03/2018 09:25:11 SUMMARY OF HEMODYNAMIC DATA Time AIR REST ECG 08:57:23 AO 100/65 (79) SA 09:20:02 LV 117/0, 11 09:27:03 LV 118/6, 16 09:27:10 LVp 119/9, 17 09:27:15 AOp 116/73 (91) 09:27:20 Signed By Antione Billy MD On 01/03/2018 09:40:55 Antione Billy MD
--- NOTE | 2018-01-03 10:04 | PN.CARD_ITS ---
Subjectve: Patient doing well this morning. He underwent transesophageal echocardiogram and left heart catheterization this morning. OSWALDO demonstrated severe LV dysfunction, mildly fibrotic and calcified aortic valve but appear to open adequately. Moderate mitral regurgitation, and moderate to severe tricuspid regurgitation. In addition there was a spherical gelatinous structure located near the right atrial lead which may be a thrombus versus a fiber elastoma. No right heart catheterization was performed. Left her catheterization demonstrated nonobstructive coronary disease of his left main, LAD, left circumflex and RCA. Overall ejection fraction was approximately 15% with minimal aortic valvular gradient on pullback, indicating he does not require aortic valve replacement. Patient remains in atrial fibrillation. Objective: Vital Signs Temp Pulse Resp BP Pulse Ox 98.0 F 104 H 16 123/81 H 94 01/03/18 07:35 01/03/18 07:35 01/03/18 07:35 01/03/18 07:35 01/03/18 07:35 Oxygen Delivery Method Room Air Weight: 203 lb 7.787 oz Body Mass Index (BMI) 30.6 Intake and Output for Last 24 Hours 01/01/18 01/02/18 01/03/18 23:59 23:59 23:59 Intake Total 600 / 600 730 / 730 100 / 100 Output Total 4025 / 4025 1350 / 1350 Balance -3425 / -3425 -620 / -620 100 / 100 General: Awake, Alert, Oriented x 3 HEENT: PERRL, EOMI, Sclera Non Icteric Neck: Supple, Good ROM, No Lymph Node Enlargement Lungs: Clear to auscultation Cardiovascular: Irregular Rhythm, Normal S1, Normal S2, No Rubs, No Gallops Murmur Murmur: Grade 2/6, Crescendo-Decrescendo Vascular: No Carotid Bruits, Normal Femoral Pulses, Normal Radial Pulses, Normal Dorsalis Pedal Pulse, Normal Posterior Tibial Pulses Abdomen: Bowel Sounds Present, Soft, Non Tender, No HSM, No Organomegaly Extremities: No Cyanosis, No Clubbing, No edema Neurological: No Focal Motor or Sensory Deficit 01/03/18 05:50: Sodium 132 L, Potassium 3.8, Chloride 94 L, Carbon Dioxide 27.0 , Anion Gap 11, BUN 52 H, Creatinine 2.82 H, Est GFR (MDRD) Af Amer 28 L, Est GFR (MDRD) Non-Af 23 L, BUN/Creatinine Ratio 18.4, Glucose 66 L, Calcium 8.6 01/03/18 05:50: WBC 3.2 L, RBC 4.87, Hgb 13.8, Hct 43.0, MCV 88.3, MCH 28.3, MCHC 32.1, RDW 18.5 H, RDW Differential 59.3 H, Plt Count 115 L, MPV 11.2, Immature Gran % (Auto) 0.000, Neut % (Auto) 61.2, Lymph % (Auto) 21.5, [place] % ( Auto) 8.5, Eos % (Auto) 7.9 H, Baso % (Auto) 0.9, Absolute Neuts (auto) 1.9 L, Total Counted Not Reportable 01/03/18 05:50: PT 19.8 H, INR 1.7, APTT 33.8 Rhythm: EKG: ECHO: Stress Test: Cardiac Cath: PCI: CT Surgery: Holter monitor: EPS: PPM: CXR: Chest CT Scan: Medical Necessity - Tobacco Use Smoking Status: Former smoker Tobacco Use: Cigarettes Assessment/Plan 1. Congestive heart failure: The patient was admitted with congestive heart failure which was originally felt to be a combination of LV dysfunction, pulmonary hypertension, and possibly due to severe underappreciated aortic valve stenosis. Transesophageal echocardiogram done this morning showed mild thickening and calcification of the aortic valve appeared to open adequately. This was confirmed by left heart catheterization with mild aortic stenosis by pigtail pullback. I do not believe the patient requires aortic valve replacement at this time. We will discontinue his IV Lasix and switch him to Lasix 80 mg p.o. twice daily given his LV dysfunction, pulmonary pressures, and chronic renal insufficiency and single kidney. Patient has been on dialysis in the past, and may be tracking towards that eventually. In addition I would restart the patient's Coumadin to protect him against LV thrombi, and to hopefully minimize size of the spherical mass noted in the right atrium which may be either a fibroblastoma versus a gelatinous substance attached to the right atrial lead of his pacemaker. We will repeat his transesophageal echocardiogram in 3-4 months time to track his progress. Do not believe he requires CT scan at this time particularly with respect to his chronic renal insufficiency. 2. LV dysfunction: We will switch the patient from metoprolol to Coreg 3.125 mg p.o. twice daily. Would not recommend digoxin given his chronic renal insufficiency. Hopefully the alpha blockade component of Coreg will assist with afterload reduction in lieu of his chronic renal insufficiency. He is a poor candidate for ELMER inhibitors or ARB's. Another option would be hydralazine if his heart rate is well controlled. 3. Cardiac risk stratification: The patient's original presentation was for cardiac risk stratification for right inguinal hernia surgery with Dr. Bloom. Patient is at least moderate risk for right inguinal hernia surgery. His coronary catheterization shows nonobstructive coronary disease and does not require stenting let alone bypass surgery. Would not recommend aortic valve replacement either. Patient's condition can be monitored perioperatively. He already has an AICD placed to assist with ventricular arrhythmias. I will discuss with Dr. Bloom. 4. Thank you very much for the opportunity to participate in the cardiac care of your patient. Discussed with Dr. Shepherd Code Visit Inpatient E&M: 39944 Subs Hosp L2
[2018-01-03] MEDS: 0.9% Normal Saline 1,000 ML 150 ML IV (10:13)
[2018-01-03 11:01] LABS: Bedside Glucose 56 mg/dL (70-110)
[2018-01-03] MEDS: Furosemide 80 MG Tablet PO ×2 (14:14→18:47)
[2018-01-03] MEDS: Insulin Lispro 100 UNIT/ML INSULN.PEN SQ ×2 (16:26→22:50)
[2018-01-03 16:36] LABS: Bedside Glucose 178 mg/dL (70-110)
[2018-01-03] MEDS: Carvedilol 3.125 MG TABLET PO (22:50)
[2018-01-03] MEDS: Pravastatin 20 MG Tablet PO (22:51)
[2018-01-03 23:11] LABS: Bedside Glucose 185 mg/dL (70-110)
[2018-01-03] MEDS: Glucerna Shake 120 ML LIQUID PO (23:17)
[2018-01-04] VITALS (7 sets, daily range): BP systolic 121–131; BP diastolic 82–93; PULSE 86–100; RESP 16–17; TEMP 36.4–36.6; O2SAT 93–96
[2018-01-04 06:38] LABS: Anion Gap 11 (5-15); BUN 43 mg/dL (7-18); BUN/Creat Ratio 16.1 RATIO (10-20); Calcium,Total 8.4 mg/dL (8.5-10.1); Chloride 93 mmol/L (98-107); Creatinine, Serum 2.67 mg/dL (0.70-1.30); EST Glomerular Filtration Rate 25 mL/min (>60); Est Glom Filt Rate - Afr Amer 30 mL/min (>60); Glucose 88 mg/dL (74-106); Magnesium 2.4 mg/dL (1.6-2.6); Potassium 3.6 mmol/L (3.5-5.1); Sodium Level 131 mmol/L (136-145)
--- NOTE | 2018-01-04 07:38 | NURSING ---
Pt did have an episode this shift where he seemed to be possibly having a hallucination. Pt was trying to pick something off of his fingers. Nothing appeared to be on the pts fingers. Pt is very confused.
[2018-01-04] MEDS: Furosemide 80 MG Tablet PO (10:05)
[2018-01-04] MEDS: Carvedilol 3.125 MG TABLET PO (10:05)
[2018-01-04] MEDS: Aspirin E.C. 81 MG Tablet PO (10:05)
[2018-01-04] MEDS: Glucerna Shake 120 ML LIQUID PO (10:06)
[2018-01-04 11:07] LABS: International Normalized Ratio 1.5; Prothrombin Time (Protime)PT. 17.9 SECONDS (11.7-14.9)
[2018-01-04 11:21] LABS: Bedside Glucose 97 mg/dL (70-110)
[2018-01-04] MEDS: Insulin Lispro 100 UNIT/ML INSULN.PEN SQ (11:23)
--- NOTE | 2018-01-04 11:28 | PN.CARD_ITS ---
Subjectve: Patient feels much better today, much more conversive, denies any chest pain or angina. Telemetry showed atrial fibrillation with controlled ventricular response, rare PVCs and ventricular couplets. Potassium is low today. Patient sitting up in a chair without any difficulty. Objective: Vital Signs Temp Pulse Resp BP Pulse Ox 97.5 F L 98 16 121/82 H 96 01/04/18 09:15 01/04/18 11:11 01/04/18 09:15 01/04/18 09:15 01/04/18 09:15 Oxygen Flow Rate (L/min) 2 Oxygen Delivery Method Room Air Weight: 201 lb 15.095 oz Body Mass Index (BMI) 30.6 Intake and Output for Last 24 Hours 01/02/18 01/03/18 01/04/18 23:59 23:59 23:59 Intake Total 730 / 730 2360 / 2360 0 / 0 Output Total 1350 / 1350 2350 / 2350 300 / 300 Balance -620 / -620 10 / 10 -300 / -300 General: Awake, Alert, Oriented x 3 HEENT: PERRL, EOMI, Sclera Non Icteric Neck: Supple, Good ROM, No Lymph Node Enlargement Lungs: Clear to auscultation Cardiovascular: Irregular Rhythm, Normal S1, Normal S2, No Rubs, No Gallops Murmur Murmur: Grade 2/6, Crescendo-Decrescendo Vascular: No Carotid Bruits, Normal Femoral Pulses, Normal Radial Pulses, Normal Dorsalis Pedal Pulse, Normal Posterior Tibial Pulses Abdomen: Bowel Sounds Present, Soft, Non Tender, No HSM, No Organomegaly Extremities: No Cyanosis, No Clubbing, No edema Neurological: No Focal Motor or Sensory Deficit 01/04/18 05:20: Sodium 131 L, Potassium 3.6, Chloride 93 L, Carbon Dioxide 27.0 , Anion Gap 11, BUN 43 H, Creatinine 2.67 H, Est GFR (MDRD) Af Amer 30 L, Est GFR (MDRD) Non-Af 25 L, BUN/Creatinine Ratio 16.1, Glucose 88, Calcium 8.4 L, Magnesium 2.4 01/04/18 05:20: PT 17.9 H, INR 1.5 Rhythm: EKG: ECHO: Stress Test: Cardiac Cath: PCI: CT Surgery: Holter monitor: EPS: PPM: CXR: Chest CT Scan: Medical Necessity - Tobacco Use Smoking Status: Former smoker Tobacco Use: Cigarettes Assessment/Plan 1. Congestive heart failure: The patient was admitted with congestive heart failure which was originally felt to be a combination of LV dysfunction, pulmonary hypertension, and possibly due to severe underappreciated aortic valve stenosis. Transesophageal echocardiogram done this morning showed mild thickening and calcification of the aortic valve appeared to open adequately. This was confirmed by left heart catheterization with mild aortic stenosis by pigtail pullback. I do not believe the patient requires aortic valve replacement at this time. We will discontinue his IV Lasix and switch him to Lasix 80 mg p.o. twice daily given his LV dysfunction, pulmonary pressures, and chronic renal insufficiency and single kidney. Patient has been on dialysis in the past, and may be tracking towards that eventually. In addition I will start him on potassium chloride 10 mEq p.o. daily to keep his potassium above 4.0. His creatinine is about 2.8. In addition I would restart the patient's Coumadin to protect him against LV thrombi, and to hopefully minimize size of the spherical mass noted in the right atrium which may be either a fibroblastoma versus a gelatinous substance attached to the right atrial lead of his pacemaker. We will repeat his transesophageal echocardiogram in 3-4 months time to track his progress. Do not believe he requires CT scan at this time particularly with respect to his chronic renal insufficiency. 2. LV dysfunction: We will switch the patient from metoprolol to Coreg 3.125 mg p.o. twice daily. Would not recommend digoxin given his chronic renal insufficiency. Hopefully the alpha blockade component of Coreg will assist with afterload reduction in lieu of his chronic renal insufficiency. He is a poor candidate for ELMER inhibitors or ARB's. Another option would be hydralazine if his heart rate is well controlled. 3. Cardiac risk stratification: The patient's original presentation was for cardiac risk stratification for right inguinal hernia surgery with Dr. Bloom. Patient is at least moderate risk for right inguinal hernia surgery. His coronary catheterization shows nonobstructive coronary disease and does not require stenting let alone bypass surgery. Would not recommend aortic valve replacement either. Patient's condition can be monitored perioperatively. He already has an AICD placed to assist with ventricular arrhythmias. I discussed the patient's condition and testing outcomes yesterday 01/03/[address] Bloom. 4. Thank you very much for the opportunity to participate in the cardiac care of your patient. Discussed with Dr. Shepherd. Patient may be discharged to either group home facility, or home if okay with physical therapy. Code Visit Inpatient E&M: 39304 Subs Hosp L2
[2018-01-04 11:45] LABS: Bedside Glucose 190 mg/dL (70-110)
--- NOTE | 2018-01-04 12:34 | PCM.DC ---
- Discharge Diagnoses Current Active Problems: Current Active and Chronic Problems (Last Updated 01/04/18 @ 09:09 by Ebony Cross) Acute on chronic systolic CHF (congestive heart failure) (Acute) Syncope (Acute) AICD (automatic cardioverter/defibrillator) present (Chronic) Reason(s) for Visit for Discharge Instructions: Fall, shortness of breath You will use the following diet at home:: Calorie/Carbohydrate Controlled (specify 1200, 1400, etc), Cardiac Your food should be the consistency of: Regular Your liquids should be the consistency of: Regular/Thin Discharge Activity: Return to Normal Activity Additional Instructions: Note changes to your medications. Continue to take all your medications as prescribed. If you should have worsening headaches, or increase sleepiness, go to the ED to have a CT of head in the light of your recent head injury. You should follow-up with INR checks as previous. You should be on Lovenox for 2 more days after discharge and stop. Not that Lovenox should be injected once a day, not twice. You will be discharged with home health. Allergies/Adverse Reactions: Allergies No Known Allergies Allergy (Verified 01/01/18 11:30) Medications to take at Discharge Cholecalciferol (Vitamin D3) [Vitamin D3] 4,000 unit PO DAILY 06/05/17 Gabapentin [Neurontin] 300 mg PO BID 06/05/17 Lenalidomide [Revlimid] 2.5 mg PO DAILY 06/05/17 Pravastatin [Pravachol] 20 mg PO QHS 06/05/17 Warfarin [Coumadin] 0.5 mg PO SUWE 06/05/17 Warfarin [Coumadin] 1 mg PO MOTUTHFRSA 06/05/17 aspirin 81 mg tablet,delayed release 81 mg PO DAILY 12/25/17 Acetaminophen [Tylenol] 1,000 mg PO TID #90 tab 01/04/18 Carvedilol [Coreg (Beta Jevon)] 3.125 mg PO BID #60 tab 01/04/18 Enoxaparin Sodium [Lovenox] 80 mg SC DAILY #5 syringe 01/04/18 Furosemide [Lasix] 80 mg PO BID@1000,1800 #60 tab 01/04/18 Glucerna Shake 120 ml PO 4X/DAY #100 liquid 01/04/18 Insulin Glargine [Lantus SoloStar Pen] 15 units SC QHS #1 pen 01/04/18 Insulin Lispro [Humalog KwikPen] See Protocol SQ ACHS #1 insuln.pen 01/04/18 Menthol [Bengay Vanishing Scent] 1 applic TOPICAL TID PRN PRN #1 tube 01/04/18 Potassium Chloride [K-Dur] 10 meq PO DAILYCM #30 tab 01/04/18 The following prescriptions were given: Furosemide [Lasix] 80 mg PO BID@1000,1800 #60 tab Insulin Glargine [Lantus SoloStar Pen] 15 units SC QHS #1 pen Insulin Lispro [Humalog KwikPen] See Protocol SQ ACHS #1 insuln.pen Menthol [Bengay Vanishing Scent] 1 applic TOPICAL TID PRN PRN #1 tube PRN Reason: Pain Potassium Chloride [K-Dur] 10 meq PO DAILYCM #30 tab Carvedilol [Coreg (Beta Jevon)] 3.125 mg PO BID #60 tab Acetaminophen [Tylenol] 1,000 mg PO TID #90 tab Glucerna Shake 120 ml PO 4X/DAY #100 liquid Orders to be completed after discharge: Basic Metabolic Profile (BMP) Time Frame: 1 Week, Location: Laboratory Primary Care Physician: Timi Noel [Primary Care Provider] - Please follow up with your Primary Care Physician in: within 2 weeks of discharge Test Results: Test results from this visit will be discussed in further detail at your follow-up appointment, if applicable. Please Follow Up With: Antione Billy MD When: as scheduled Proposed Discharge Date: 01/04/18
--- NOTE | 2018-01-04 12:43 | DCINST_ITS ---
- Discharge Diagnoses Current Active Problems: Current Active and Chronic Problems (Last Updated 01/04/18 @ 09:09 by Ebony Cross ) Acute on chronic systolic CHF (congestive heart failure) (Acute) Syncope (Acute) AICD (automatic cardioverter/defibrillator) present (Chronic) Reason(s) for Visit for Discharge Instructions: Fall, shortness of breath You will use the following diet at home:: Calorie/Carbohydrate Controlled ( specify 1200, 1400, etc), Cardiac Your food should be the consistency of: Regular Your liquids should be the consistency of: Regular/Thin Discharge Activity: Return to Normal Activity Additional Instructions: Note changes to your medications. Continue to take all your medications as prescribed. If you should have worsening headaches, or increase sleepiness, go to the ED to have a CT of head in the light of your recent head injury. You should follow-up with INR checks as previous. You should be on Lovenox for 2 more days after discharge and stop. Not that Lovenox should be injected once a day, not twice. You will be discharged with home health. Allergies/Adverse Reactions: Allergies No Known Allergies Allergy (Verified 01/01/18 11:30) Medications to take at Discharge Cholecalciferol (Vitamin D3) [Vitamin D3] 4,000 unit PO DAILY 06/05/17 Gabapentin [Neurontin] 300 mg PO BID 06/05/17 Lenalidomide [Revlimid] 2.5 mg PO DAILY 06/05/17 Pravastatin [Pravachol] 20 mg PO QHS 06/05/17 Warfarin [Coumadin] 0.5 mg PO SUWE 06/05/17 Warfarin [Coumadin] 1 mg PO MOTUTHFRSA 06/05/17 aspirin 81 mg tablet,delayed release 81 mg PO DAILY 12/25/17 Acetaminophen [Tylenol] 1,000 mg PO TID #90 tab 01/04/18 Carvedilol [Coreg (Beta Jevon)] 3.125 mg PO BID #60 tab 01/04/18 Enoxaparin Sodium [Lovenox] 80 mg SC DAILY #5 syringe 01/04/18 Furosemide [Lasix] 80 mg PO BID@1000,1800 #60 tab 01/04/18 Glucerna Shake 120 ml PO 4X/DAY #100 liquid 01/04/18 Insulin Glargine [Lantus SoloStar Pen] 15 units SC QHS #1 pen 01/04/18 Insulin Lispro [Humalog KwikPen] See Protocol SQ ACHS #1 insuln.pen 01/04/18 Menthol [Bengay Vanishing Scent] 1 applic TOPICAL TID PRN PRN #1 tube 01/04/18 Potassium Chloride [K-Dur] 10 meq PO DAILYCM #30 tab 01/04/18 The following prescriptions were given: Furosemide [Lasix] 80 mg PO BID@1000,1800 #60 tab Insulin Glargine [Lantus SoloStar Pen] 15 units SC QHS #1 pen Insulin Lispro [Humalog KwikPen] See Protocol SQ ACHS #1 insuln.pen Menthol [Bengay Vanishing Scent] 1 applic TOPICAL TID PRN PRN #1 tube PRN Reason: Pain Potassium Chloride [K-Dur] 10 meq PO DAILYCM #30 tab Carvedilol [Coreg (Beta Jevon)] 3.125 mg PO BID #60 tab Acetaminophen [Tylenol] 1,000 mg PO TID #90 tab Glucerna Shake 120 ml PO 4X/DAY #100 liquid Orders to be completed after discharge: Basic Metabolic Profile (BMP) Time Frame: 1 Week, Location: Laboratory Primary Care Physician: Timi Noel [Primary Care Provider] - Please follow up with your Primary Care Physician in: within 2 weeks of discharge Test Results: Test results from this visit will be discussed in further detail at your follow- up appointment, if applicable. Please Follow Up With: Antione Billy MD When: as scheduled Proposed Discharge Date: 01/04/18
--- NOTE | 2018-01-04 12:52 | PCM.DC.SUM ---
Discharge Date and Diagnosis Date of Admission: 01/01/18 Date of Discharge: 01/04/18 - Primary Discharge Diagnosis Active and Suspected Problems (Last Updated 01/04/18 @ 09:12 by Ebony Cross) Acute on chronic systolic CHF (congestive heart failure) (Acute) Syncope (Acute) - Secondary Discharge Diagnosis Chronic Problems (Last Updated 01/04/18 @ 09:12 by Ebony Cross) Papillary fibroelastoma of heart (Chronic) Per [facility]DO 01/03/2018 @ [facility] per Dr. Billy History of left heart catheterization (Chronic 01/03/18) Normal coronaries, nonischemic CMP, mild Aortic Stenosis per cath done @ [facility] per Dr. Billy. AICD (automatic cardioverter/defibrillator) present (Chronic) Nonrheumatic aortic (valve) stenosis (Chronic) per echo 12/27/17 Premature ventricular contractions (Chronic) First degree AV block (Chronic) Nonischemic cardiomyopathy (Chronic) EF 20-25% per echo Apr 2017 History of cardioversion (Chronic 08/15/17) OSWALDO, DCCV and ICD implant for nonischemic CMP @ [facility] per Dr. Gifford History of nephrectomy (Chronic) Mentioned in EP procedure done @ [facility] 2018: verify with pt at appt. Cardiac defibrillator in situ (Chronic) with pacemaker, prophylactic for EF of 20-25%/sudden cardiac prevention: Dual Chamber, [employer] Evera MRI XT DR model DDM B1D4, serial number [id number] per Dr. 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 Sears for oncology Chronic kidney disease, stage 4 (severe) (Chronic) Chronic systolic CHF (congestive heart failure), NYHA class 3 (Chronic) Ear lesion (Chronic) Type 2 diabetes mellitus (Chronic) Multiple myeloma (Chronic) History of atrial fibrillation (Chronic) Hyperlipidemia (Chronic) HTN (hypertension) (Chronic) Hospital Course and Treatment Imaging Results: Clinical Impression(s) from Imaging Studies Brain CT 01/01/18 11:27 IMPRESSION: Chronic involutional changes of the brain. Opacification of the right maxillary sinus and left sphenoid sinus. Electronically Signed: Ciaran Pollard MD at 12:18 EDT Tel [phone], Service support , Chest X-Ray 01/01/18 11:27 IMPRESSION: Findings suggestive of CHF Electronically Signed: Ludwig OnielDO at 11:57 EDT Tel , Service support , Cervical Spine CT 01/01/18 11:28 IMPRESSION: Multilevel degenerative changes, as described above. Electronically Signed: Ciaran Pollard MD at 12:24 EDT Tel [phone], Service support , Cardiology Operations: None Procedures: Cardiac catheterization, Transesophageal Echo Summary of Care Provided: The patient is a 77 year old M past medical history of multiple myeloma, on oral chemotherapy, hypertension, chronic atrial fibrillation, currently off Coumadin, dementia, who had recently established with Dr. Billy and had an echo done which showed EF of 15% with severe global hypokinesis. Patient was admitted to the hospital after a fall and was short of breath. Patient had been sleeping in the recliner and was sleepy when he fell out of his recliner. Unclear if patient had a syncopal episode or not. Interrogation of his ICD showed no acute event. He was found to be in acute on chronic systolic CHF, admitted to the telemetry floor and managed on IV Lasix with improvement. Patient was seen by cardiology and underwent his planned OSWALDO, left heart cath. Findings included mild thickening and calcification of aortic valve. A sherical mass was noted in the right atrium which was thought to be either a fibroblastoma or gelatinous substance attached to the right atrial lead of his pacemaker. Discussed with cardiology, patient does not need aortic valve replacement at this time. Patient was transitioned to oral Lasix. He was recommended to resume back on his warfarin to a couple days patient with Lovenox. Plan of care was discussed in detail with the patient's . He would have home health on discharge Discharge Diet: Low fat/ Low Cholesterol, 2000 mg Sodium Diet Discharge Activity: Return to Normal Activity Home Medications: Medications to take at Discharge Cholecalciferol (Vitamin D3) [Vitamin D3] 4,000 unit PO DAILY 06/05/17 Gabapentin [Neurontin] 300 mg PO BID 06/05/17 Lenalidomide [Revlimid] 2.5 mg PO DAILY 06/05/17 Pravastatin [Pravachol] 20 mg PO QHS 06/05/17 Warfarin [Coumadin] 0.5 mg PO SUWE 06/05/17 Warfarin [Coumadin] 1 mg PO MOTUTHFRSA 06/05/17 aspirin 81 mg tablet,delayed release 81 mg PO DAILY 12/25/17 Acetaminophen [Tylenol] 1,000 mg PO TID #90 tab 01/04/18 Carvedilol [Coreg (Beta Jevon)] 3.125 mg PO BID #60 tab 01/04/18 Enoxaparin Sodium [Lovenox] 80 mg SC DAILY #5 syringe 01/04/18 Furosemide [Lasix] 80 mg PO BID@1000,1800 #60 tab 01/04/18 Glucerna Shake 120 ml PO 4X/DAY #100 liquid 01/04/18 Insulin Glargine [Lantus SoloStar Pen] 15 units SC QHS #1 pen 01/04/18 Insulin Lispro [Humalog KwikPen] See Protocol SQ ACHS #1 insuln.pen 01/04/18 Menthol [Bengay Vanishing Scent] 1 applic TOPICAL TID PRN PRN #1 tube 01/04/18 Potassium Chloride [K-Dur] 10 meq PO DAILYCM #30 tab 01/04/18 Following Prescrptions Were Given to Patient: Enoxaparin Sodium [Lovenox] 80 mg SC DAILY #5 syringe Furosemide [Lasix] 80 mg PO BID@1000,1800 #60 tab Insulin Glargine [Lantus SoloStar Pen] 15 units SC QHS #1 pen Insulin Lispro [Humalog KwikPen] See Protocol SQ ACHS #1 insuln.pen Menthol [Bengay Vanishing Scent] 1 applic TOPICAL TID PRN PRN #1 tube PRN Reason: Pain Potassium Chloride [K-Dur] 10 meq PO DAILYCM #30 tab Carvedilol [Coreg (Beta Jevon)] 3.125 mg PO BID #60 tab Acetaminophen [Tylenol] 1,000 mg PO TID #90 tab Glucerna Shake 120 ml PO 4X/DAY #100 liquid Primary Care Physician: Timi Noel [Primary Care Provider] - Please follow up with your Primary Care Physician in: within 2 weeks of discharge Please Follow Up With: Antione Billy MD When: as scheduled Medical Necessity - Tobacco Use Smoking Status: Former smoker Tobacco Use: Cigarettes Meaningful Use Info Meaningful Use Diagnoses (Choose all that apply): None applicable Code Visit Inpatient E&M: 98086 Subs Hosp L2
--- NOTE | 2018-01-04 12:52 | CASEMGMT ---
Addendum entered by Akila Mann 01/04/18 13:37: Sobeida from [facility] and they cannot take patient as he lives outside their coverage area. RUBEN called [facility] and made a referral to Den[facility]. SW faxed referral and she will call SW back to say whether or not they can take patient. Patient's really wants to leave. SW spoke with her and told her about [facility] not being able to take him, but a referral was made to [facility]. SW told her if she is not here when they call back SW can call her and let her know. SW told her regardless the agency would call her and set up a time to visit. She thanked RUBEN. Akila CARMONA Original Note: RUBEN spoke with patient's and inquired if she would like home health nursing and therapy to come out and work with patient. (Patient is confused) She said that would be great and she is in agreement with [facility]. RUBEN told her it may not be until Sunday that they come out, but someone will call to arrange a visit. She was in agreement with this. RUBEN called Sobeida with [facility] and made a referral. She will check, but they should be able to take patient. Plan: [facility] intermediate, PT, OT, and an aide. Akila CARMONA
--- NOTE | 2018-01-08 15:49 | CASEMGMT ---
CORNEL ASKEW DC Phone Call DC Date: 01/05/18 [place]OR[place] Disposition: Home with home health Attempted call to pt's phone. No answer
== END 2018-01-04 14:05 | disposition home or self-care (01) | DRG 286 ==
LOC: ED 12:17 → PCU 13:29
PROVIDERS: Hospitalist; Internal Medicine Cardiovascular Disease; Admitting Provider Internal Medicine; Emergency Provider Emergency Medicine; Family Provider Family Medicine; PCP Family Medicine; Visit Provider Internal Medicine
DX: I13.0 Hypertensive heart and chronic kidney disease with heart failure and stage 1 through stage 4 chronic kidney disease, or unspecified chronic kidney disease (principal); I50.23 Acute on chronic systolic (congestive) heart failure; C90.00 Multiple myeloma not having achieved remission; N18.4 Chronic kidney disease, stage 4 (severe); S00.83XA Contusion of other part of head, initial encounter; I42.9 Cardiomyopathy, unspecified; W07.XXXA Fall from chair, initial encounter; Y92.019 Unspecified place in single-family (private) house as the place of occurrence of the external cause; I48.2 Chronic atrial fibrillation; R55 Syncope and collapse; Z23 Encounter for immunization; E11.22 Type 2 diabetes mellitus with diabetic chronic kidney disease; D63.1 Anemia in chronic kidney disease; E78.5 Hyperlipidemia, unspecified; Z95.810 Presence of automatic (implantable) cardiac defibrillator; Z79.899 Other long term (current) drug therapy; Z90.5 Acquired absence of kidney; Z87.891 Personal history of nicotine dependence; I35.0 Nonrheumatic aortic (valve) stenosis
CPT/HCPCS: 36415; 51702; 70450; 71045; 72125; 80048; 82962; 83735; 83880; 84443; 84484; 85025; 85610; 85730; 90715; 92526; 93005; 93312; 93320; 93325; 93458; 97162; 97166; 97530; 99284; J7030; J7050; Q9967; A4216; C1769; C1894; J1940